=== PATIENT | male | born 1950 | race African-American/Black ===

== ENCOUNTER 2016-10-13 17:47 | Inpatient (IN) | payer BC, MEDICARE ==
--- NOTE | ~2016-10-13 | CN ---
Consultation Report [facility] [address] [place]. [address] NAME: APOLLO ELIZABETH : 48 STATUS : ADM IN PAT#: [id number] AGE: 66 ADM/REG DATE : 10/13/16 MR#: [id number] REPORT SERV DATE: 10/18/16 DICTATED BY: LLUVIA RUBIO DATE: 10/18/16 REPORT STATUS : Draft TRANSCRIBED BY: MODL DATE: 10/18/16 CONSULTATION DATE OF CONSULTATION: 10/18/2016 REFERRING PROVIDER: Valentin Lucero PA-C. REASON FOR CONSULTATION: Right exudative effusion, consideration for thoracoscopy and possible pleurodesis. CHIEF COMPLAINT: "I have been getting short of breath and have not felt well." HISTORY OF PRESENT ILLNESS: This is a 66-year-old gentleman, with prior history of coronary artery bypass grafting by Dr. Rubio in 2009. The patient's history is significant for AICD implantation post coronary artery bypass grafting, with severe tricuspid insufficiency secondary to lead placement, enlargement of right ventricle and right atrium and elevated right atrial pressure. The patient reports worsening shortness of breath over the past several weeks but denies any history of fevers, chills, or sweats. He came to the hospital and was admitted on the 10/13/2016. He had a chest x-ray showing very large right pleural effusion and had subsequent CT scan on 10/13/2016, showing right pleural effusion with atelectasis right lower lobe lung. Yesterday the patient underwent thoracentesis of 1600 mL of slightly cloudy yellow pleural fluid and met 1 criteria for exudative pleural effusion. We were asked to see for possible surgical therapy including right thoracoscopy and possible pleurodesis. This was discussed with the patient today. PRIOR MEDICAL HISTORY: 1. End-stage renal disease, on dialysis. 2. Coronary artery disease, status post coronary artery bypass grafting in 2009. 3. Type 2 insulin-dependent diabetes mellitus. 4. Hypertension. 5. Mitral insufficiency. 6. Sick sinus syndrome and heart failure, status post implantation of AICD. 7. History of ventricular tachycardia. 8. Hyperlipidemia. 9. Glaucoma with laser surgery. 10.Cataracts with intraocular lens implants. 11.Peripheral arterial disease, status post bilateral below-knee amputations. 12.Atrial fibrillation. PRIOR SURGICAL HISTORY: Significant for previous coronary artery bypass grafting, prior PCI with stent in 2001, prior left knee scope, right and left below-knee amputations, previous colonoscopy, and previous creation of left upper extremity arteriovenous fistula for dialysis. Consultation Report [facility] [id number] [place]. [address] NAME: APOLLO ELIZABETH : 48 STATUS : ADM IN PAT#: [id number] AGE: 66 ADM/REG DATE : 10/13/16 MR#: [id number] REPORT SERV DATE: 10/18/16 DICTATED BY: LLUVIA RUBIO DATE: 10/18/16 REPORT STATUS : Draft TRANSCRIBED BY: AIDE DATE: 10/18/16 ALLERGIES: INCLUDE ADHESIVE TAPE WHICH CAUSES BLISTERING OF THE SKIN AND VANCOMYCIN WHICH LEADS TO DIARRHEA. MEDICATIONS AT HOME: Include albuterol inhaler 2 puffs inhaled b.i.d., aspirin 325 mg p.o. daily, atorvastatin 40 mg p.o. at bedtime, Nephro-Shaneka 1 tab q.a.m., PhosLo 667 two tablets p.o. with meals, Tums 500 mg 2 daily, Coreg 6.25 mg p.o. b.i.d., Sensipar tabs 30 mg p.o. on Sunday, Sunday, Sunday; Clopidogrel 75 mg p.o. q.a.m., last dose was on 10/14/2016, insulin, nitroglycerin as needed, Restoril as needed for sleep, probiotics 1 cap p.o. q.a.m., and Mucinex 1 tab p.o. q.12 hours p.r.n. chest congestion. FAMILY HISTORY: Noncontributory. SOCIAL HISTORY: He is retired from working in [place] locally. He has a remote history of drinking about 4 beers per day for maybe 30 years. He denies the use of illicit drugs or tobacco. REVIEW OF SYSTEMS: In general, negative for any recent weight change, fevers, chills, or night sweats. He has had recent diarrhea since taking antibiotic therapy. Otherwise, negative or as above. PHYSICAL EXAMINATION: GENERAL: He is a pleasant black male, sitting upright in bed. He is in no acute distress. VITAL SIGNS: His temperature is 97.5, pulse is 75 and irregular, respirations 17, regular and unlabored, and saturation is 100% on 4 L nasal cannula. HEENT: Head is shaven, pupils are equal, round, and reactive to light and accommodation, sclerae clear, conjunctivae pink. Oral and buccal mucosa pink and moist. He is missing many teeth. No abscesses. Mallampati class 1 airway. NECK: Supple. No restricted range of motion. He has prominent neck vein distention, more prominent on the right than the left. CHEST: Diminished breath sounds in the right lung base and dullness to percussion over the right lower chest posteriorly. He has no use of accessory muscles. No chest deformity. CV: Regular rate and rhythm without murmur or rub. He has palpable pacemaker over the right upper chest. ABDOMEN: Soft, obese, nontender, liver is nonpalpable. /RECTAL: Declined. He is wearing diapers. MUSCULOSKELETAL: He has bilateral lower extremity below-knee amputations. There are dressings over both lower extremities. NEUROLOGIC: He is alert, oriented, appropriately responsive and a good historian. No focal neurologic deficits. DATA: His recent echo dated 10/03/2016, shows borderline left ventricular hypertrophy with ejection fraction 45% to 50%, severe right atrial dilation, severe right ventricular dilation, and severe tricuspid regurgitation with elevated right atrial pressure of 20 mmHg. There is a small pericardial effusion. His recent CT scan as described above. Chest x-ray taken today shows partial reaccumulation of right pleural effusion, and atelectasis in the Consultation Report [address] [place]. [address] NAME: APOLLO ELIZABETH : 48 STATUS : ADM IN [facility]#: [id number] AGE: 66 ADM/REG DATE : 10/13/16 MR#: [id number] REPORT SERV DATE: 10/18/16 DICTATED BY: LLUVIA RUBIO DATE: 10/18/16 REPORT STATUS : Draft TRANSCRIBED BY: MODL DATE: 10/18/16 left lung base. His pleural fluid, LDH was 157, his glucose 196, pleural fluid protein was 4.9, and systemic. Serum protein was 7.5. His recent procalcitonin was elevated at 4.78. A1c was 6.2. Electrolytes shows expected elevation of the BUN and creatinine of 45 and 6.94, and hyperglycemia with glucose 262. His CBC shows WBCs 5.9, hemoglobin 12.5 g, hematocrit 39.4%, and platelets 170,000. IMPRESSION: Recurrent right exudative pleural effusion, status post thoracentesis yesterday. We are asked to see for possible right thoracoscopy and pleurodesis. This was discussed with the patient including the usual perioperative course, indications, benefits, and risks. These include things like bleeding, need for blood or blood product transfusion and their attendant risks, infection, pneumonia, air leak from the lung, pain, need for chest tubes postoperatively, heart attack, and even . The patient indicates his understanding and we will review with Dr. Rubio and make further disposition. We appreciate the opportunity to participate in his care. DICTATED BY: Trish Shah/RAMIROL Lluvia Rubio M.D. / [id number] CC: Keisha Hill M.D.
--- NOTE | ~2016-10-13 | OP ---
Record Of Operation [facility] [address] [place]. [address] NAME: APOLLO ELIZABETH : 48 STATUS : ADM IN PAT#: [id number] AGE: 66 ADM/REG DATE : 10/13/16 MR#: [id number] REPORT SERV DATE: 10/17/16 DICTATED BY: VALENTIN VELIZ DATE: 10/17/16 REPORT STATUS : Draft TRANSCRIBED BY: AIDE DATE: 10/17/16 DATE OF PROCEDURE: 10/17/2016 TIME: 9:30. PROCEDURE: Ultrasound-guided right-sided thoracentesis. INDICATION: Large right-sided pleural effusion. PROCEDURE MANAGER NEW PRODUCT: David Veliz PA-C. CONSENT: Consent was obtained from the patient prior to the procedure. Diagnostic and therapeutic indications for thoracentesis were discussed as well as risks including life- threatening bleeding, pneumothorax, and even the possible necessity of chest tube placement. Benefits and alternatives were explained at length. Prior to the procedure, imaging studies were reviewed with Dr. Arthur who agreed with the indication to proceed with thoracentesis. Dr. Arthur was present for the procedure. PROCEDURE SUMMARY: A time out was performed verifying correct patient, procedure, site, and positioning. The patient's right chest was prepped and draped in a sterile manner using chlorhexidine scrub after the appropriate level was percussed and confirmed by ultrasound. U/S images were obtained and placed within the chart. 2% lidocaine with epinephrine was then used to anesthetize the region. A finder needle was then used to aspirate yellow cloudy pleural fluid. A 10-blade scalpel was then used to make a small incision. The thoracentesis catheter was then threaded into the pleural space without difficulty. The patient had 1600 mL of yellow cloudy fluid removed. Some residual fluid was noted on ultrasound toward the end of the procedure. However, it became difficult to aspirate and at this time, the procedure was ended. No immediate complications were noted during the procedure. A post-procedure chest x-ray is pending at the time of this dictation. The fluid will be sent for several studies. ESTIMATED BLOOD LOSS: Minimal. GBS/MODL Valentin Veliz PA-C / [id number] CC: Keisha Hill M.D.
--- NOTE | ~2016-10-13 | DS ---
Discharge Summary [facility] [address] [place]. [address] NAME: APOLLO ELIAZBETH : 48 STATUS : ADM IN [facility]#: [id number] AGE: 66 ADM/REG DATE : 10/13/16 MR#: [id number] REPORT SERV DATE: 10/28/16 DICTATED BY: DELONTE EMMANUEL DATE: 10/27/16 REPORT STATUS : Draft TRANSCRIBED BY: MODL DATE: 10/27/16 ADMISSION DATE: 10/13/2016 DISCHARGE DATE: This is a discharge dialysis patient. CONDITION AT DISCHARGE: Stable. MEDICATIONS ON DISCHARGE: Are as follows: Vitamin C 1000 mg p.o. b.i.d., Lipitor 40 mg p.o. q.h.s., Dulcolax 10 mg p.r.n., Coreg 6.25 mg p.o. b.i.d., Sensipar 30 mg Sunday, Sunday, Plavix 75 mg p.o. daily, NovoLog insulin via sliding scale, Lantus insulin 35 units subcu q.h.s., B complex tablet 1 p.o. daily, ProAmatine 10 mg p.o. t.i.d., ProAir HFA p.r.n. shortness of breath, PhosLo 2 tabs p.o. t.i.d. with meals, probiotic 1 cap p.o. daily, ASA 325 mg Sunday, , Sunday, Restoril 30 mg p.o. q.h.s. p.r.n., Tums 1000 mg p.o. daily p.r.n., and nitroglycerin sublingual p.r.n. CONSULTATIONS DURING HOSPITAL STAY: Pulmonary Services, Samuel Buckley MD; Jani Bazzi M.D. of Infectious Disease; Carmine Rubio M.D. of CV Surgery. DISCHARGE DIAGNOSES: Are as follows: 1. End-stage renal disease. 2. Possible pneumonia. 3. Recurrent right pleural effusion status post thoracentesis. 4. Pleurodesis. 5. Diabetes mellitus. 6. Peripheral vascular disease. 7. Bilateral mfsfo-fhu-ughb amputation. 8. Chronic hypotension. 9. Insulin-dependent diabetes mellitus. 10.Remote myocardial infarction. 11.Previous coronary artery bypass graft. 12.Atrial fibrillation. 13.Pacemaker. 14.History of sepsis. 15.Anemia. HOSPITAL COURSE: This is an end-stage renal disease patient, who dialyzes on a Sunday, Sunday, Sunday schedule. Admitted on 10/13/2016. He had stated that he "did not feel well" and presented post hemodialysis to [facility] for evaluation. He was admitted in favor of further workup and supportive care, and diagnosed with possible pneumonia. He was provided supportive care with hemodialysis and antibiotics. Pulmonary consultation was undertaken after a large pleural effusion was noted on CT imaging. He was seen in consultation by Dr. Samuel Buckley, and thoracentesis was planned. Thoracentesis was undertaken on 10/17/2016, of the right side by Valentin Lucero of the Pulmonary Service. A 1.6 L of yellow cloudy fluid was removed with remaining fluid difficult to aspirate. Subsequently consultation was undertaken with Dr. Carmine Rubio, who saw him on 10/18/2016, Discharge Summary [address] [address] NAME: APOLLO ELIZABETH : 48 STATUS : ADM IN [facility]#: [id number] AGE: 66 ADM/REG DATE : 10/13/16 MR#: [id number] REPORT SERV DATE: 10/28/16 DICTATED BY: DELONTE EMMANUEL DATE: 10/27/16 REPORT STATUS : Draft TRANSCRIBED BY: AIDE DATE: 10/27/16 at the request of Jazmine, for consideration of thoracoscopy and pleurodesis. This procedure was undertaken on 10/21/2016, with chest tube being placed. The patient then continued in ICU setting and was transitioned to the floor on 10/25/2016. His chest tube has been subsequently removed. He continues to have some modest amount of drainage in that site. He appears to be stable today. CV Surgery has continued to follow him. Pulmonary Services have signed off at this point. The patient has declined rehabilitation of an inpatient nature and wishes to go home with home health care. Today, he is being dialyzed as usual 3 hours via his upper extremity fistula and will be dismissed if he is cleared by CV Surgery, who will re-evaluate him this morning. The patient is stable and has no complaints this morning. He will resume his usual outpatient hemodialysis schedule, medications as listed above, and return for followup with Pulmonary Services or CV Surgery if deemed necessary by their service. DICTATED BY: Frederick Meehan NP JR/AIDE Delonte Emmanuel M.D. / [id number] CC: Keisha Hill M.D.
--- NOTE | ~2016-10-13 | CN ---
Consultation Report [address] [place]. [address] NAME: APOLLO THAO : 48 STATUS : ADM IN PAT#: [id number] AGE: 66 ADM/REG DATE : 10/13/16 MR#: [id number] REPORT SERV DATE: 10/17/16 DICTATED BY: RASHEED HUNT DATE: 10/16/16 REPORT STATUS : Draft TRANSCRIBED BY: MODL DATE: 10/16/16 CONSULTATION DATE OF CONSULTATION: 10/16/2016 REASON FOR THE VISIT: Arrhythmia. HISTORY OF PRESENT ILLNESS: Mr. Thao is a 66-year-old man known to me from prior care with a defibrillator. He also has history of atrial fibrillation and ventricular tachycardia. He has presented with shortness of breath. He needs a thoracentesis. While here, he has had short runs of nonsustained ventricular tachycardia. Device interrogation has demonstrated atrial fibrillation as well. He denies any chest pain or palpitations. No syncope. PAST MEDICAL HISTORY: 1. End-stage renal disease, on hemodialysis. 2. History of congestive heart failure. 3. Atrial fibrillation. 4. History of ventricular tachycardia. 5. Bilateral cckwf-ppq-lwaa amputations. 6. Peripheral vascular disease. 7. Diabetes. 8. Hypertension. 9. Coronary artery disease with history of myocardial infarction. 10.Anemia. SOCIAL HISTORY: He is . is very supportive. He does not smoke. FAMILY HISTORY: Noncontributory. HOME MEDICATIONS: Please see the list in the chart since it is extensive. Relevant cardiac medications are: 1. Aspirin 325 mg on non dialysis days. 2. Carvedilol 6.25 mg b.i.d. 3. Plavix 75 mg daily. ALLERGIES: HE IS ALLERGIC TO VANCOMYCIN. REVIEW OF SYSTEMS: A 10 system review was asked and is negative except for noted above in the history of present illness and for the following. He has chronic fatigue. No significant palpitations. No recent cold or flu symptoms. No cough. PHYSICAL EXAMINATION: VITAL SIGNS: Temperature 97.8, heart rate 80, blood pressure 124/72. Consultation Report [address] [place]. [address] NAME: APOLLO THAO : 48 STATUS : ADM IN PAT#: [id number] AGE: 66 ADM/REG DATE : 10/13/16 MR#: [id number] REPORT SERV DATE: 10/17/16 DICTATED BY: RASHEED HUNT DATE: 10/16/16 REPORT STATUS : Draft TRANSCRIBED BY: AIDE DATE: 10/16/16 GENERAL: Mr. Thao is a well-developed chronically ill-appearing man, in no acute distress. He is alert and oriented to person and hospital. HEENT: Negative. He does not appear dehydrated. There is some JVD in his neck. LUNGS: Have rhonchi bilaterally. Some upper airway noises. No crackles. HEART: Tones are distant. They sound regular. ABDOMEN: Negative. He has good bowel sounds. EXTREMITIES: Significant for bilateral gohfr-tnx-uugd amputations. He does not appear edematous otherwise. SKIN: Does not show any rash. There is some bruising. EXTREMITIES: He has a fistula in his left upper extremity. This is for dialysis. NEUROLOGIC: He moves all four extremities equally. He has normal speech. LAB DATA: White blood cell count is 6, hematocrit 41, platelet count 175. Sodium 138, potassium 3.8, BUN is 25, creatinine is 4.7. Troponin 0.23. Electrocardiogram, currently I do not see an electrocardiogram in the chart. There are multiple telemetry strips that show atrial pacing, ventricular pacing, short episodes of nonsustained ventricular tachycardia. There is one episode that lasted about a minute long of a wide-complex rhythm that appears to be ventricular pacing, not ventricular tachycardia. Device interrogation, this was performed by the [employer] b[employer] outside sales representative. It demonstrates atrial fibrillation, episodes of ventricular tachycardia that have not been long enough to treat. Chamber data is otherwise normal. No permanent changes were made. IMPRESSION: 1. Chronic atrial fibrillation. 2. Ventricular tachycardia, nonsustained. 3. Congestive heart failure. 4. Coronary artery disease. 5. Chronically elevated troponin. PLAN: Mr. Thao should remain on his beta-luci. He is maintained on aspirin and Plavix as an outpatient for his atrial fibrillation. He is not taking stronger anticoagulation secondary to the bleeding risk in his situation. The aspirin and Plavix can be stopped as needed during the hospitalization for any procedures that need to be done. I will not increase his beta-luci secondary to some low blood pressures. Therefore, there will be no change on my part right now. We will observe him. Thank you for the consultation. MICHELLE/MODL Rasheed Garcia Consultation Report [facility] [id number] [place]. [address] NAME: APOLLO THAO : 48 STATUS : ADM IN PAT#: [id number] AGE: 66 ADM/REG DATE : 10/13/16 MR#: [id number] REPORT SERV DATE: 10/17/16 DICTATED BY: RASHEED HUNT DATE: 10/16/16 REPORT STATUS : Draft TRANSCRIBED BY: AIDE DATE: 10/16/16 Keisha Hunt / [id number] CC: Keisha Hill M.D.
--- NOTE | ~2016-10-13 | HP ---
History And Physical [facility] [address] [place] [place]. [address] NAME: APOLLO ELIZABETH : 48 STATUS : ADM IN PAT#: [id number] AGE: 66 ADM/REG DATE : 10/13/16 MR#: [id number] REPORT SERV DATE: 10/14/16 DICTATED BY: KETAN UMANZOR DATE: 10/14/16 REPORT STATUS : Draft TRANSCRIBED BY: MODL DATE: 10/14/16 DATE OF ADMISSION: 10/13/2016 REASON FOR ADMISSION: End-stage renal disease with questionable pneumonia. HISTORY OF PRESENT ILLNESS: This is a very pleasant 66-year-old, medically unfortunate male patient, who returns to [facility] complaining of overt fatigue and dyspnea over the last 72 hours. He reported to hemodialysis per his usual schedule yesterday and was complaining of shortness of breath and dyspnea at dialysis treatment, stating "that he did not feel right." He was dialyzed for his usual time and was noted to be 1.9 kilos over dry weight, was challenged with 3.5 kilos removed. As the patient continued to feel dyspneic and fatigued, he was sent to [facility] for evaluation and subsequently admitted for likely pneumonia. The patient has had a previous echocardiogram in 07/2016, showing an ejection fraction at 45% to 50% with noted large pleural effusion on that evaluation. Chest x-ray on evaluation here has shown consolidated right infiltrate/or effusion involving two-thirds of the right lung. The patient is awake and alert this morning. He is noticeably short of breath, not overtly tachypneic. His family is at bedside during evaluation. Denies current chest pain. He is on supplemental oxygen at 4 L, which is an increase from his usual baseline. PAST MEDICAL HISTORY: Positive for end-stage renal disease, Sunday, Sunday, Sunday, at [facility] via a left upper extremity fistula. History also positive for diabetes mellitus, osteomyelitis of the left foot, status post left BKA, 06/05/2016, by Dr. Sanchez, remote right [id number] amputation, peripheral vascular disease, diabetes mellitus type 2, hypertension, remote myocardial infarction, coronary artery disease, status post CABG, atrial fibrillation, status post pacemaker, history of sepsis, and anemia. REVIEW OF SYSTEMS: Completed. Please see HPI for pertinent details. SOCIAL HISTORY: No ETOH. No illicit drugs. No tobacco. Lives here locally with excellent family support in regard to his medical care. HOME MEDICATIONS AND ALLERGIES: Have been addressed and are as follows: He lists allergies to adhesive tape and allergies to vancomycin. ACTIVE MEDICATIONS: Include ProAir HFA two puffs inhaled p.r.n. shortness of breath, ASA 325 mg p.o. non-dialysis days, Lipitor 40 mg p.o. at bedtime, Nephro-Shaneka 1 tab daily, PhosLo 667 mg p.o. daily, Tums 500 mg two tabs daily p.r.n. for GERD, Coreg 6.25 mg p.o. b.i.d., Sensipar 30 mg Sunday, Sunday, Sunday, Plavix 75 mg p.o. daily, NovoLog sliding scale, Lantus 35 units subcu at bedtime, NitroQuick 0.4 p.r.n., Restoril 30 mg p.o. at bedtime p.r.n., probiotic 1 cap daily, and Mucinex 1 tab q.12 hours p.r.n. congestion. PHYSICAL EXAMINATION: VITAL SIGNS: Blood pressure 121/70, temperature 97.5, heart rate 79 beats per minute, respiratory rate 22, he is 97% on 4 L. History And Physical [address] [address] NAME: APOLLO ELIZABETH : 48 STATUS : ADM IN [facility]#: [id number] AGE: 66 ADM/REG DATE : 10/13/16 MR#: [id number] REPORT SERV DATE: 10/14/16 DICTATED BY: KETAN UMANZOR DATE: 10/14/16 REPORT STATUS : Draft TRANSCRIBED BY: AIDE DATE: 10/14/16 GENERAL: He is awake, alert, and oriented. He is noticeably short of breath, but not overtly tachypneic. HEENT: Normocephalic and atraumatic. Normal ocular movements. No scleral icterus. No conjunctival pallor is appreciated. NECK: Without thyromegaly. No JVD or mass. CHEST: Shows positive S1 and S2. No rubs or gallops. LUNGS: Diminished throughout with normal expansion and effort bilaterally. Nonlabored shortness of breath, but not overtly tachypneic, with no rhonchi or wheezes appreciated to auscultation. GI: Shows positive bowel sounds in all four quadrants. No appreciable mass or tenderness. : Deferred. EXTREMITIES: Show positive pulses in bilateral upper extremities and bilateral below-the- knee amputations. NEUROLOGIC: Appears to be grossly intact. Nonfocal. SKIN: Warm, dry, and intact to the visualized surfaces. No rash, lesions, or ecchymosis. PSYCH: He appears to be of appropriate mood and affect. LABORATORY DATA: Pertinent laboratories and imaging to this evaluation are as follows: Most recent portable chest x-ray identifies persistent right lung consolidation or infiltrate with left basilar atelectasis with noted previous discussion of the effusion on chest x-ray on the same day. Sodium 136, potassium 3.9, chloride 100, CO2 of 26, BUN 24, creatinine 4.40 with a reflected GFR of 15 mL/minute, glucose of 137. Calcium 8.4, magnesium 2.1, phosphorus at 2.4, albumin 3.0. Troponin 0.19. CBC: White blood cell count of 5.4, RBC 4.44, hemoglobin 12.2, hematocrit 39.3, and platelets at 177. IMPRESSION AND PLAN: This is a very pleasant, end-stage renal disease, 66-year-old male, who dialyzes Sunday, Sunday, Sunday via left upper extremity fistula, now presenting to [facility] with tachypnea, shortness of breath, and fatigue with question of pneumonia. He does not have an elevated white count and has been afebrile. He, however, was challenged yesterday at dialysis with extra removal as reflected in the HPI. He did have evidence last evening of short runs of ventricular tachycardia which were nonsustained with relatively a normal electrolyte pattern which was called to the on-call service. Place him in dialysis today and attempt to further UF as he may need further dry weight challenge and ask Cardiology to see and evaluate for ventricular tachycardia runs with previous cardiac history as listed above. Considering previous effusions noted on imaging, we will check CT of the chest without contrast to evaluate for possible need for thoracentesis versus further evaluation for question of loculation of fluid if present. Antibiotics were in place and we will continue those. Consider additional antibiotic coverage if warranted and consider further consultation with Pulmonary if CT should show evidence of needed thoracentesis. Strict I's and O's, daily weights, sliding scale insulin, home medications as listed above. Renal ADA diet with further modification of treatment plan to be made based on clinical presentation of the patient, laboratory results, further consultation with renal attending. We appreciate Cardiology's assistance in implementing care plan and directives for this patient. History And Physical [facility] [id number] [place]. [address] NAME: APOLLO ELIZABETH : [birth year] STATUS : ADM IN PAT#: [id number] AGE: 66 ADM/REG DATE : 10/13/16 MR#: [id number] REPORT SERV DATE: 10/14/16 DICTATED BY: KETAN UMANZOR DATE: 10/14/16 REPORT STATUS : Draft TRANSCRIBED BY: AIDE DATE: 10/14/16 DICTATED BY: Frederick Meehan NP JR/AIDE Ketan Umanzor M.D. / [id number] CC: Keisha Hill M.D.
--- NOTE | ~2016-10-13 | CN ---
Consultation Report [facility] [address] [place]. [address] NAME: APOLLO HTAO : 48 STATUS : ADM IN [facility]#: [id number] AGE: 66 ADM/REG DATE : 10/13/16 MR#: [id number] REPORT SERV DATE: 10/16/16 DICTATED BY: SAMUEL BUCKLEY DATE: 10/15/16 REPORT STATUS : Draft TRANSCRIBED BY: MODL DATE: 10/15/16 PULMONARY CONSULT NOTE DATE OF CONSULTATION: 10/15/2016 REASON FOR CONSULTATION: Antibiotic recommendations along with pleural effusion. CHIEF COMPLAINT: Shortness of breath. HISTORY OF PRESENT ILLNESS: Mr. Thao is a very nice 66-year-old gentleman with a past medical history of underlying cardiovascular disease and end-stage renal disease, who began having shortness of breath four days ago, , who is at the bedside notes that the shortness of breath actually probably started sometime before that, but this has been progressive. The patient now has conversational dyspnea. He is having intermittent sputum production, which is yellow, but this sounds to be chronic. He does have also a dry cough, which was also new. The patient is having orthopnea, which is new, but is not having any pain. The patient does complain of some hot flashes and abdominal bloating. His appetite has decreased. PAST MEDICAL HISTORY: End-stage renal disease, coronary artery disease, bilateral below-the- knee amputation, peripheral vascular disease, diabetes, CABG, AICD, atrial fibrillation, history of sepsis and anemia. HOME MEDICATIONS: The home medication list reviewed, pulmonary medications include albuterol. ALLERGIES: ADHESIVE TAPE AND VANCOMYCIN. SOCIAL HISTORY: The patient is currently , no tobacco or illicit drug use, no alcohol. FAMILY HISTORY: Other family members with underlying cardiovascular disease, diabetes, and cirrhosis. REVIEW OF SYSTEMS: All pertinent review systems reviewed and is otherwise negative. PHYSICAL EXAMINATION: VITAL SIGNS: The patient is currently afebrile, heart rate 70s, respiratory rate 16 to 22, oxygen saturation currently on 4 L with a saturation of 95% to 100%, respiratory rate in the 30s, blood pressure currently in the 120s and 130s. GENERAL: The patient has conversational dyspnea, shallow breathing, but is not in respiratory distress. PULMONARY: Decreased breath sounds on the right, otherwise left lung is clear. Consultation Report [facility] [address] [place]. [address] NAME: APOLLO THAO : 48 STATUS : ADM IN [facility]#: [id number] AGE: 66 ADM/REG DATE : 10/13/16 MR#: [id number] REPORT SERV DATE: 10/16/16 DICTATED BY: SAMUEL BUCKLEY DATE: 10/15/16 REPORT STATUS : Draft TRANSCRIBED BY: MODCece DATE: 10/15/16 CARDIAC: Regular rate, no murmurs. ABDOMEN: Soft, nontender, nondistended. No guarding or rebound. Soft bowel sounds. EXTREMITIES: The patient has bilateral [id number] amputations. NEUROLOGIC: The patient is able to move all extremities with no difficulty. LABORATORY EXAMINATION: The patient has no leukocytosis, mild anemia, procalcitonin is 4.36, evidence of chronic kidney disease. BNP 313. IMAGING: CT scan of the chest shows a large right pleural effusion with compressive atelectasis of the right lung with underlying left lung atelectasis, but otherwise no significant mediastinal adenopathy. ASSESSMENT AND PLAN: Mr. Thao is a 66-year-old gentleman with end-stage renal disease, diagnosis in a patient who has significant cardiovascular and peripheral vascular disease, who has known osteomyelitis and history of underlying sepsis. The patient clearly comes in with a shortness of breath, hypoxia secondary to a right pleural effusion, concern of underlying sepsis is of note. 1. Sepsis: The patient is not in septic shock. He has a history of multiple infections including methicillin-resistant Staphylococcus aureus, Pseudomonas, Citrobacter, Proteus. At this moment in time, his blood cultures were drawn two days ago, I recommend that we discontinue Levaquin, check procalcitonin in the morning. I originally wrote for vancomycin; however, will discontinue this secondary to the fact that the patient has had a known history of vancomycin allergy. If this patient does have continued sepsis or findings of methicillin-resistant Staphylococcus aureus, the patient can potentially be treated with clindamycin or Zyvox. 2. Right pleural effusion: The patient clearly has a need to get this tapped, the patient is on Plavix. The patient took Plavix this morning, at this moment in time, we will hold off and the patient will most likely need a thoracentesis to rule out empyema and furthermore a probable paracentesis to rule out spontaneous bacterial peritonitis. The patient will be on antibiotics however. 3. Hypoxia: Most likely secondary to the atelectasis. Thank you very much for this consultation and allowing us to participate in your patient's care, please call us with any further questions or concerns. JAKOBQ/AIDE Samuel Buckley MD / [id number] CC: Carmine Paige M.D. Consultation Report [address] [address] NAME: APOLLO THAO : 48 STATUS : ADM IN [facility]#: [id number] AGE: 66 ADM/REG DATE : 10/13/16 MR#: [id number] REPORT SERV DATE: 10/16/16 DICTATED BY: SAMUEL BUCKLEY DATE: 10/15/16 REPORT STATUS : Draft TRANSCRIBED BY: AIDE DATE: 10/15/16 Carmine Mendoza M.D.
--- NOTE | ~2016-10-13 | OP ---
Record Of Operation [facility] [address] [place]. [address] NAME: APOLLO ELIZABETH : 48 STATUS : ADM IN PAT#: [id number] AGE: 66 ADM/REG DATE : 10/13/16 MR#: [id number] REPORT SERV DATE: 10/21/16 DICTATED BY: LLUVIA RUBIO DATE: 10/20/16 REPORT STATUS : Draft TRANSCRIBED BY: MODL DATE: 10/20/16 DATE OF PROCEDURE: 10/20/2016 PREOPERATIVE DIAGNOSES: 1. Recurrent right pleural effusion. 2. End-stage renal disease. 3. Coronary artery disease, status post previous coronary bypass grafting. 4. Insulin-dependent diabetes mellitus type 2. 5. Hypertension. POSTOPERATIVE DIAGNOSES: 1. Recurrent right pleural effusion. 2. End-stage renal disease. 3. Coronary artery disease, status post previous coronary bypass grafting. 4. Insulin-dependent diabetes mellitus type 2. 5. Hypertension. PROCEDURE PERFORMED: Right video-assisted thoracic surgery procedure with drainage of effusion and pleurodesis. SURGEON: Lluvia Rubio M.D. CHAIR AND COUCH MAKER: Marlena Munoz. ANESTHESIA: General. INDICATIONS: This is a 66-year-old gentleman with a long history of coronary artery disease, underwent bypass by ak in 2009. He also has a long history of diabetes mellitus along with end-stage renal disease. He has had bilateral lower extremity amputation. He has hypertension, hypercholesterolemia, and has had worsening shortness of breath. He was admitted to the hospital with these symptoms and a chest x-ray demonstrated a large right pleural effusion. He underwent thoracentesis of approximately 1600 mL of yellow fluid and this did not dissipate the effusion completely and we were asked to perform a thoracoscopic procedure to drain the effusion and diagnose possible causes along with preventative treatment using pleurodesis. We discussed the operation with the patient and his , and they wished to proceed. FINDINGS AT OPERATION: 1. 2450 mL of serous fluid was obtained from the chest, some of this was sent for cultures and some sent for cytology. 2. There was no peel on the surface of the lung. 3. There was no obvious pulmonary pathology to explain recurrent effusion. 4. We used Betadine for sclerosing agent. PATHOLOGIC SPECIMEN: Include cytology and cultures of fluid. Record Of Operation [facility] [address] [place]. [address] NAME: APOLLO ELIZABETH : 48 STATUS : ADM IN PAT#: [id number] AGE: 66 ADM/REG DATE : 10/13/16 MR#: [id number] REPORT SERV DATE: 10/21/16 DICTATED BY: LLUVIA RUBIO DATE: 10/20/16 REPORT STATUS : Draft TRANSCRIBED BY: MODCece DATE: 10/20/16 DESCRIPTION OF PROCEDURE: The patient was brought to the operating suite where general anesthesia was induced and airway secured with a dual-lumen endotracheal tube. Lines were secured by Anesthesia. The patient was rolled in a left lateral decubitus position, right chest prepped with Hibiclens and ChloraPrep and draped with Ioban sterile sheets. The right lung was deflated by Anesthesia. A single 3 to 4 cm VATS incision was made along the posterior axillary line and four intercostal spaces above the costal margin. We aspirated here and serous effusion was obtained. We can direct our incision through the chest wall musculature and down to the level of the pleura where we entered the chest bluntly. A protractor soft tissue retractor was placed. A second thoracoscopic port site was made along the anterior axillary line and 1 or 2 intercostal spaces below this site. Through this 1-2 cm incision, we entered the chest bluntly with a tonsil clamp under thoracoscopic visualization. We then aspirated all the fluid in the right chest. A total of 2450 mL was obtained. Some of this was sent for cultures and some for cytology. We then inspected the right chest completely. 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 In addition, there was no peel on the surface of the lung and it inflated completely to obliterate the pleural cavity on the right. Then, intercostal nerve block and field block performed using a TAP solution. Then, a right angle chest tube was placed at the base of the right chest through the most inferior and anterior thoracoscopic port site. Then, using the Betadine sclerosing agent, this was instilled into the chest and a chest tube was clamped. The lung was then inflated completely and allowed to remain inflated. Then, hemostasis was obtained. A protractor soft tissue retractor was removed and this largest VATS incision was closed in layers of absorbable suture and skin closed in subcuticular fashion. The patient tolerated the procedure well. There were no complications. DISPOSITION: The patient was extubated and taken to recovery room in stable condition. The chest tube was left in a position so that it would not drain for one hour postoperatively. EDGAR/AIDE Lluvia Rubio M.D. / [id number] Record Of Operation [address] [address] NAME: APOLLO ELIZABETH : 48 STATUS : ADM IN [facility]#: [id number] AGE: 66 ADM/REG DATE : 10/13/16 MR#: [id number] REPORT SERV DATE: 10/21/16 DICTATED BY: LLUVIA RUBIO DATE: 10/20/16 REPORT STATUS : Draft TRANSCRIBED BY: AIDE DATE: 10/20/16 CC: Lluvia Paige M.D.
--- NOTE | ~2016-10-13 | CN ---
Consultation Report [facility] [address] [place]. [address] NAME: APOLLO ELIZABETH : 48 STATUS : ADM IN [facility]#: [id number] AGE: 66 ADM/REG DATE : 10/13/16 MR#: [id number] REPORT SERV DATE: 10/18/16 DICTATED BY: MARILU BAZZI DATE: 10/18/16 REPORT STATUS : Draft TRANSCRIBED BY: MODL DATE: 10/18/16 INFECTIOUS DISEASE CONSULTATION DATE OF CONSULTATION: 10/18/2016 REASON FOR CONSULTATION: Possible pneumonia and possible C. diff. HISTORY OF PRESENT ILLNESS: This is a 66-year-old man well known to me from previous inpatient consultations who has a past medical history notable for end-stage renal disease on dialysis for over 10 years along with diabetes, peripheral vascular disease, and coronary artery disease. He is status post bilateral below-knee amputations. The patient was admitted to the hospital on 10/13 with worsening shortness of breath over the previous few days along with some fatigue. He denies having any significant fevers, chills or sweats. He did have mild episodic nonproductive cough but that is fairly chronic for him. Initial chest x-ray showed a very large right pleural effusion, new compared to July, leading to a CT scan on 10/13 of the chest which confirmed this moderately large right pleural effusion with complete atelectasis of the right lower lobe. The patient was on Plavix which was held and he underwent thoracentesis yesterday with removal of 1600 mL of somewhat cloudy yellow fluid with results as outlined below. He feels much better since the thoracentesis. On admission, the patient had blood cultures done and was started on antibiotics initially with a dose of Levaquin and also Zosyn which he remains on today. The patient has had no fevers in the hospital. His white blood cell count has remained normal. He did develop some episodic loose stools but not severe and did not have diarrhea overnight or this morning. PAST MEDICAL HISTORY: As outlined above and on previous consultations and is most notable in addition for a history of a pacemaker, coronary artery bypass surgery, history of atrial fibrillation. ALLERGIES: VANCOMYCIN. PRESENT MEDICATIONS: In addition to Zosyn include Levemir, Florastor, Nephrocaps, Sensipar, Coreg, PhosLo, Lipitor. SOCIAL HISTORY: He lives with his . Nonsmoker. Nondrinker. FAMILY HISTORY: Noncontributory. REVIEW OF SYSTEMS: Otherwise negative. PHYSICAL EXAMINATION: VITAL SIGNS: The patient weighs 79 kilos. He is afebrile. Blood pressure 114/60, pulse 77, respiratory rate 14. He has 100% oxygen saturation on 3 L nasal cannula. HEAD AND NECK: Clear oral cavity without thrush. Consultation Report [facility] [id number] [place]. [address] NAME: APOLLO ELIZABETH : 48 STATUS : ADM IN [facility]#: [id number] AGE: 66 ADM/REG DATE : 10/13/16 MR#: [id number] REPORT SERV DATE: 10/18/16 DICTATED BY: MARILU BAZZI DATE: 10/18/16 REPORT STATUS : Draft TRANSCRIBED BY: AIDE DATE: 10/18/16 LUNGS: Clear to auscultation anteriorly. He has good breath sounds, posterior wheatley although somewhat diminished in the right base. No crackles. CARDIAC: Regular rate and rhythm. Normal S1, S2. No murmur, gallop, or rub. He has a pacemaker in the right upper chest without overlying signs of inflammation. ABDOMEN: Bowel sounds to be present, not hyperactive. Soft, nontender. EXTREMITIES: Status post bilateral below-knee amputations. He has a fistula for dialysis in his left arm. LABORATORY STUDIES: White blood cell count yesterday 5.7, hemoglobin 12.3, platelets 183. Albumin 3.4. Liver function tests normal. On 10/14, procalcitonin was 4.36, repeat on 10/16, 4.78. Admission blood cultures negative. Pleural fluid studies showed 246 white blood cells without any neutrophils. LDH of 157 with serum of 291, total protein 4.9 with serum of 7.5, glucose 196. Negative Gram stain. Negative cultures to date. Cytology pending. Chest x-ray following the thoracentesis and again this morning shows marked decrease in the right-sided pleural fluid. IMPRESSION: Other than the elevated procalcitonin, I do not see strong evidence here to suggest that the patient came in with an active pneumonia or has some other ongoing active infection. The CT scan and chest x-ray do not strongly suggest pneumonia. The pleural fluid, while exudative by total protein criteria is otherwise quite benign. The patient has had some episodic loose stools but not severe and no significant diarrhea overnight and overall, I doubt C. diff colitis. PLAN: 1. I will stop the Zosyn after the last dose today which will complete a five-day course of therapy. 2. We will follow up on the pleural fluid cytology. 3. I would not order C. diff test. KOKO/AIDE Marilu Bazzi M.D. / [id number] CC: Keisha Hill M.D. Claude Galphin, M.D.
[~2016-10-13 17:47] MED LIST: AMB10 PO; ASA5GR PO; ASAB PO; ASAEC PO; BENTYL10 PO; CEFAZ1 IM; COREG12 PO; COREG6 PO; COZAAR100 MG PO; LANTUS SC; LANTUSCART SC; LEVAQUIN5T PO; LIPITOR20 PO; LIPITOR40 PO; LOP25 PO; MAGNEBIND PO; MAGOX4 PO; MICARDIS40 PO; MICARDIS80 PO; MIRALAXPKT PO; MUCINEX600 MG PO; NEPHRO PO; NEPHRO-VITE PO; NIFEDIAC CC60 MG PO; NITROSTAT0.4 MG SL; NORV25 PO; NOVOLOG SC; NOVOPEN SC; NTG150 SL; PCET PO; PERCOCET1 TA4 PO; PLAVIX PO; PR12.5 PO; PROAIR HFA INH; PROBIOTIC PO; REG PO; RENA-VITE PO; SENSIPAR30 M1 PO; TUMSROLL PO; [UNRECOGNIZED DRUG - OTHER]
[2016-10-13 19:16] LABS: BASOPHILS ABSOLUTE 0.06 10/3/uL (0.0-0.16); EOSINOPHILS ABSOLUTE 0.06 10/3/uL (0.0-0.53); ER CBC TAT 0 Hrs 13 Mins; IMMATURE GRANULOCYTES 0.2 %; IMMATURE GRANULOCYTES ABSOLUTE 0.01 10/3/uL (0.0-0.11); LYMPHOCYTES 16.7 %; LYMPHOCYTES ABSOLUTE 1.03 10/3/uL (0.67-4.30); MEAN CORPUS HGB CONC 31.7 g/dL (32.0-36.0); MEAN CORPUSCULAR HEMOGLOB 26.9 pg (26.0-34.0); MONOCYTES 16.8 %; MONOCYTES ABSOLUTE 1.04 10/3/uL (0.21-1.20); NEUTROPHILS 64.3 %; NEUTROPHILS ABSOLUTE 3.98 10/3/uL (2.02-8.40); PLATELET COUNT 220 10/3/uL (150-400); RBC DISTRIBUTION WIDTH 20.3 % (12.0-16.0); WHITE BLOOD CELLS 6.2 10/3/uL (4.5-10.5)
[2016-10-13 19:17] LABS: HEMATOCRIT 40.7 % (40.0-51.0); HEMOGLOBIN 12.9 g/dL (13.6-17.8); MANUAL DIFF NO %; RED CELL COUNT 4.79 10/6/uL (4.7-6.1)
[2016-10-13 19:24] LABS: INTERNATIONAL NORMAL RATI 1.2 UNITS (-); PARTIAL THROMBO TIME 38.7 SEC (22.5-37.2)
[2016-10-13 19:26] LABS: PROTIME (NOT ORD) 15.2 SEC (12.0-14.5)
[2016-10-13 19:56] LABS: ANISOCYTOSIS 1+ (5-10/OIF) (0-5/OIF); GIANT PLATELET OCC; PLATELET ESTIMATE ADQ (ADEQUATE)
[2016-10-13 20:34] LABS: CALCIUM, SERUM 8.6 MG/DL (8.5-10.4); CHLORIDE, SERUM 97 MMOL/L (96-112); CO2 (CARBON DIOXIDE) 29 MMOL/L (24-34); SODIUM, SERUM 134 MMOL/L (135-148)
[2016-10-13 20:38] LABS: BUN (BLOOD UREA NITROGEN) 20 MG/DL (6-23); CREATININE 3.65 MG/DL (0.70-1.30); GFR AFRICAN AMERICAN 19 ML/MIN (>=60); GFR NON AFRICAN AMERICAN 16 ML/MIN (>=60); GLUCOSE, SERUM 91 MG/DL (60-99); POTASSIUM, SERUM 3.6 MMOL/L (3.5-5.3)
[2016-10-13 20:39] LABS: CHEST PAIN PROFILE TAT 0 Hrs 27 Mins; TROPONIN I 0.22 NG/ML (<0.05)
[2016-10-13] MEDS ORDERED: PLAVIX PO (22:21)
[2016-10-13] MEDS ORDERED: LANTUSCART SC (22:21)
[2016-10-13] MEDS ORDERED: NOVOPEN SC (22:21)
[2016-10-13] MEDS ORDERED: PHOSLO PO (22:21)
[2016-10-13] MEDS ORDERED: COREG3 PO (22:22)
[2016-10-13] MEDS ORDERED: NEPHRO-VITE PO (22:22)
[2016-10-13] MEDS ORDERED: SENSIPAR30 M1 PO (22:22)
[2016-10-13] MEDS ORDERED: PROBIOTIC PO (22:22)
[2016-10-13] MEDS ORDERED: PROAIR HFA INH (22:23)
[2016-10-13] MEDS ORDERED: TUMSROLL PO (22:23)
[2016-10-13] MEDS ORDERED: ASA5GR PO (22:23)
[2016-10-13] MEDS ORDERED: RESTORIL30 MG PO (22:23)
[2016-10-13] MEDS ORDERED: LIPITOR40 PO (22:23)
[2016-10-13] MEDS ORDERED: MUCINEX DM PO (22:24)
[2016-10-13] MEDS ORDERED: NITROQUICK0.4 MG PO (22:24)
[2016-10-14 07:03] LABS: BASOPHILS 1.3 %; BASOPHILS ABSOLUTE 0.07 10/3/uL (0.0-0.16); EOSINOPHILS 1.9 %; HEMATOCRIT 39.3 % (40.0-51.0); HEMOGLOBIN 12.2 g/dL (13.6-17.8); IMMATURE GRANULOCYTES 0.2 %; IMMATURE GRANULOCYTES ABSOLUTE 0.01 10/3/uL (0.0-0.11); LYMPHOCYTES 20.3 %; LYMPHOCYTES ABSOLUTE 1.09 10/3/uL (0.67-4.30); MEAN CORPUSCULAR HEMOGLOB 27.5 pg (26.0-34.0); MEAN PLATELET VOLUME 11.2 fL (9.2-13.0); MONOCYTES 13.8 %; MONOCYTES ABSOLUTE 0.74 10/3/uL (0.21-1.20); NEUTROPHILS 62.5 %; NEUTROPHILS ABSOLUTE 3.36 10/3/uL (2.02-8.40); PLATELET COUNT 177 10/3/uL (150-400); RBC DISTRIBUTION WIDTH 18.7 % (12.0-16.0); RED CELL COUNT 4.44 10/6/uL (4.7-6.1); WHITE BLOOD CELLS 5.4 10/3/uL (4.5-10.5)
[2016-10-14 07:10] LABS: MANUAL DIFF NO %; MEAN CORPUSCULAR VOLUME 88.5 fL (80-100)
[2016-10-14 07:14] LABS: CALCIUM, SERUM 8.4 MG/DL (8.5-10.4); CHLORIDE, SERUM 100 MMOL/L (96-112); CO2 (CARBON DIOXIDE) 26 MMOL/L (24-34); PHOSPHORUS, SERUM 2.4 MG/DL (2.5-4.5); SODIUM, SERUM 136 MMOL/L (135-148)
[2016-10-14 07:15] LABS: BUN (BLOOD UREA NITROGEN) 24 MG/DL (6-23); GFR AFRICAN AMERICAN 15 ML/MIN (>=60); GFR NON AFRICAN AMERICAN 13 ML/MIN (>=60); GLUCOSE, SERUM 137 MG/DL (60-99); POTASSIUM, SERUM 3.9 MMOL/L (3.5-5.3); TROPONIN I 0.19 NG/ML (<0.05)
[2016-10-14 13:16] LABS: TROPONIN I 0.23 NG/ML (<0.05)
[2016-10-14 14:34] LABS: PROCALCITONIN 4.36 ng/mL (<0.5)
[2016-10-15 07:14] LABS: HEMATOCRIT 40.7 % (40.0-51.0); HEMOGLOBIN 12.8 g/dL (13.6-17.8); MEAN CORPUS HGB CONC 31.4 g/dL (32.0-36.0); MEAN CORPUSCULAR HEMOGLOB 27.9 pg (26.0-34.0); MEAN CORPUSCULAR VOLUME 88.9 fL (80-100); MEAN PLATELET VOLUME 11.2 fL (9.2-13.0); PLATELET COUNT 175 10/3/uL (150-400); RBC DISTRIBUTION WIDTH 18.6 % (12.0-16.0); RED CELL COUNT 4.58 10/6/uL (4.7-6.1); WHITE BLOOD CELLS 5.8 10/3/uL (4.5-10.5)
[2016-10-15 07:24] LABS: MANUAL DIFF YES %
[2016-10-15 07:26] LABS: ALBUMIN 3.4 G/DL (3.5-5.0); BUN (BLOOD UREA NITROGEN) 25 MG/DL (6-23); CALCIUM, SERUM 8.6 MG/DL (8.5-10.4); CHLORIDE, SERUM 101 MMOL/L (96-112); CO2 (CARBON DIOXIDE) 30 MMOL/L (24-34); CREATININE 4.67 MG/DL (0.70-1.30); GFR AFRICAN AMERICAN 14 ML/MIN (>=60); GFR NON AFRICAN AMERICAN 12 ML/MIN (>=60); PHOSPHORUS, SERUM 2.3 MG/DL (2.5-4.5); POTASSIUM, SERUM 3.8 MMOL/L (3.5-5.3); SODIUM, SERUM 138 MMOL/L (135-148)
[2016-10-15 07:27] LABS: GLUCOSE, SERUM 105 MG/DL (60-99)
[2016-10-15 07:49] LABS: ANISOCYTOSIS 1+ (5-10/OIF) (0-5/OIF); EOSINOPHILS 3 %; EOSINOPHILS ABSOLUTE (CALC) 0.17 10/3/uL (0.0-0.53); LYMPHOCYTES 18 %; LYMPHOCYTES ABSOLUTE (CALC) 1.04 10/3/uL (0.67-4.30); MONOCYTES 16 %; MONOCYTES ABSOLUTE (CALC) 0.93 10/3/uL (0.21-1.20); NEUTROPHILS ABSOLUTE (CALC) 3.65 10/3/uL (2.02-8.40); PLATELET ESTIMATE ADQ (ADEQUATE); SEGMENTED NEUTROPHIL (0) 63 %; TOTAL NUCLEATED CELLS 100
[2016-10-16 12:33] LABS: BASOPHILS 0.6 %; BASOPHILS ABSOLUTE 0.04 10/3/uL (0.0-0.16); EOSINOPHILS 1.5 %; HEMATOCRIT 39.8 % (40.0-51.0); HEMOGLOBIN 12.6 g/dL (13.6-17.8); IMMATURE GRANULOCYTES 0.2 %; IMMATURE GRANULOCYTES ABSOLUTE 0.01 10/3/uL (0.0-0.11); LYMPHOCYTES 18.7 %; LYMPHOCYTES ABSOLUTE 1.22 10/3/uL (0.67-4.30); MEAN CORPUS HGB CONC 31.7 g/dL (32.0-36.0); MEAN CORPUSCULAR HEMOGLOB 27.6 pg (26.0-34.0); MEAN CORPUSCULAR VOLUME 87.1 fL (80-100); MEAN PLATELET VOLUME 11.1 fL (9.2-13.0); MONOCYTES 11.6 %; MONOCYTES ABSOLUTE 0.76 10/3/uL (0.21-1.20); NEUTROPHILS 67.4 %; NEUTROPHILS ABSOLUTE 4.41 10/3/uL (2.02-8.40); PLATELET COUNT 179 10/3/uL (150-400); RBC DISTRIBUTION WIDTH 18.8 % (12.0-16.0); RED CELL COUNT 4.57 10/6/uL (4.7-6.1); WHITE BLOOD CELLS 6.5 10/3/uL (4.5-10.5)
[2016-10-16 12:34] LABS: MANUAL DIFF NO %
[2016-10-16 12:42] LABS: ALBUMIN 3.2 G/DL (3.5-5.0); BUN (BLOOD UREA NITROGEN) 41 MG/DL (6-23); CALCIUM, SERUM 9.2 MG/DL (8.5-10.4); CHLORIDE, SERUM 103 MMOL/L (96-112); CO2 (CARBON DIOXIDE) 28 MMOL/L (24-34); GFR AFRICAN AMERICAN 10 ML/MIN (>=60); GFR NON AFRICAN AMERICAN 8 ML/MIN (>=60); GLUCOSE, SERUM 110 MG/DL (60-99); PHOSPHORUS, SERUM 3.3 MG/DL (2.5-4.5); POTASSIUM, SERUM 4.3 MMOL/L (3.5-5.3); SODIUM, SERUM 143 MMOL/L (135-148)
[2016-10-16 13:41] LABS: PROCALCITONIN 4.78 ng/mL (<0.5)
[2016-10-16 14:29] LABS: SGOT(AST) 33 U/L (5-40); TOTAL BILIRUBIN 0.6 MG/DL (0-1.2); TOTAL PROTEIN 7.4 G/DL (6.0-8.5)
[2016-10-16 14:33] LABS: DIRECT BILIRUBIN 0.2 MG/DL (0.0-0.4); INDIRECT BILIRUBIN(NOT ORDER) 0.4 MG/DL (0.1-0.9); SGPT(ALT) 22 U/L (5-65)
[2016-10-16 14:34] LABS: ALKALINE PHOSPHATASE 86 U/L (45-117)
[2016-10-17 05:43] LABS: BASOPHILS 0.9 %; BASOPHILS ABSOLUTE 0.05 10/3/uL (0.0-0.16); EOSINOPHILS 1.4 %; EOSINOPHILS ABSOLUTE 0.08 10/3/uL (0.0-0.53); HEMATOCRIT 39.8 % (40.0-51.0); HEMOGLOBIN 12.3 g/dL (13.6-17.8); IMMATURE GRANULOCYTES 0.2 %; IMMATURE GRANULOCYTES ABSOLUTE 0.01 10/3/uL (0.0-0.11); LYMPHOCYTES 18.1 %; LYMPHOCYTES ABSOLUTE 1.04 10/3/uL (0.67-4.30); MEAN CORPUS HGB CONC 30.9 g/dL (32.0-36.0); MEAN CORPUSCULAR HEMOGLOB 27.5 pg (26.0-34.0); MEAN CORPUSCULAR VOLUME 88.8 fL (80-100); MEAN PLATELET VOLUME 11.4 fL (9.2-13.0); MONOCYTES 16.7 %; MONOCYTES ABSOLUTE 0.96 10/3/uL (0.21-1.20); NEUTROPHILS 62.7 %; PLATELET COUNT 183 10/3/uL (150-400); RED CELL COUNT 4.48 10/6/uL (4.7-6.1); WHITE BLOOD CELLS 5.7 10/3/uL (4.5-10.5)
[2016-10-17 05:44] LABS: MANUAL DIFF NO %
[2016-10-17 05:58] LABS: ALBUMIN 3.4 G/DL (3.5-5.0); CALCIUM, SERUM 9.2 MG/DL (8.5-10.4); CHLORIDE, SERUM 101 MMOL/L (96-112); CO2 (CARBON DIOXIDE) 31 MMOL/L (24-34); PHOSPHORUS, SERUM 2.8 MG/DL (2.5-4.5); POTASSIUM, SERUM 4.1 MMOL/L (3.5-5.3); SODIUM, SERUM 140 MMOL/L (135-148)
[2016-10-17 05:59] LABS: BUN (BLOOD UREA NITROGEN) 30 MG/DL (6-23); CREATININE 5.22 MG/DL (0.70-1.30); GFR AFRICAN AMERICAN 12 ML/MIN (>=60); GFR NON AFRICAN AMERICAN 11 ML/MIN (>=60); GLUCOSE, SERUM 209 MG/DL (60-99)
[2016-10-17 11:48] LABS: TOTAL PROTEIN 7.5 G/DL (6.0-8.5)
[2016-10-17 12:15] LABS: BD FL LYMPH (NOT ORD) 57 %; BF BASO (NOT OF) 0 %; BF LARGE MONONUCLEAR 43 %; BODY FLUID EOS (NOT ORD) 0 %; BODY FLUID SEG (NOT ORD) 0 %
[2016-10-17 12:47] LABS: GLUCOSE BODY FL (NOT ORD) 196 MG/DL; LDH BODY FLUID (NOT ORD) 157 U/L; PROTEIN BODY FLUID 4.9 G/DL
[2016-10-17 13:32] LABS: BF TOTAL CELL CT (NOT ORD 246 /MM3; BODY FLUID RBC (NOT ORD) 1802 /MM3
[2016-10-18 08:28] LABS: BASOPHILS 0.7 %; BASOPHILS ABSOLUTE 0.04 10/3/uL (0.0-0.16); EOSINOPHILS 1.2 %; EOSINOPHILS ABSOLUTE 0.07 10/3/uL (0.0-0.53); HEMATOCRIT 39.4 % (40.0-51.0); HEMOGLOBIN 12.5 g/dL (13.6-17.8); IMMATURE GRANULOCYTES 0.2 %; IMMATURE GRANULOCYTES ABSOLUTE 0.01 10/3/uL (0.0-0.11); LYMPHOCYTES 23.2 %; LYMPHOCYTES ABSOLUTE 1.37 10/3/uL (0.67-4.30); MEAN CORPUS HGB CONC 31.7 g/dL (32.0-36.0); MEAN CORPUSCULAR HEMOGLOB 27.6 pg (26.0-34.0); MEAN PLATELET VOLUME 10.9 fL (9.2-13.0); MONOCYTES 11.5 %; MONOCYTES ABSOLUTE 0.68 10/3/uL (0.21-1.20); NEUTROPHILS 63.2 %; NEUTROPHILS ABSOLUTE 3.73 10/3/uL (2.02-8.40); PLATELET COUNT 170 10/3/uL (150-400); RBC DISTRIBUTION WIDTH 18.6 % (12.0-16.0); RED CELL COUNT 4.53 10/6/uL (4.7-6.1); WHITE BLOOD CELLS 5.9 10/3/uL (4.5-10.5)
[2016-10-18 08:30] LABS: MANUAL DIFF NO %
[2016-10-18 08:37] LABS: ALBUMIN 3.1 G/DL (3.5-5.0); BUN (BLOOD UREA NITROGEN) 45 MG/DL (6-23); CALCIUM, SERUM 9.1 MG/DL (8.5-10.4); CHLORIDE, SERUM 101 MMOL/L (96-112); CO2 (CARBON DIOXIDE) 27 MMOL/L (24-34); CREATININE 6.94 MG/DL (0.70-1.30); GFR AFRICAN AMERICAN 9 ML/MIN (>=60); GFR NON AFRICAN AMERICAN 7 ML/MIN (>=60); GLUCOSE, SERUM 262 MG/DL (60-99); PHOSPHORUS, SERUM 3.1 MG/DL (2.5-4.5); POTASSIUM, SERUM 4.1 MMOL/L (3.5-5.3); SODIUM, SERUM 139 MMOL/L (135-148)
[2016-10-19 07:19] LABS: BASOPHILS 0.8 %; BASOPHILS ABSOLUTE 0.05 10/3/uL (0.0-0.16); EOSINOPHILS 1.5 %; EOSINOPHILS ABSOLUTE 0.09 10/3/uL (0.0-0.53); HEMATOCRIT 40.2 % (40.0-51.0); HEMOGLOBIN 12.7 g/dL (13.6-17.8); IMMATURE GRANULOCYTES 0.2 %; IMMATURE GRANULOCYTES ABSOLUTE 0.01 10/3/uL (0.0-0.11); LYMPHOCYTES 25.2 %; LYMPHOCYTES ABSOLUTE 1.53 10/3/uL (0.67-4.30); MEAN CORPUS HGB CONC 31.6 g/dL (32.0-36.0); MEAN CORPUSCULAR HEMOGLOB 27.3 pg (26.0-34.0); MEAN CORPUSCULAR VOLUME 86.3 fL (80-100); MEAN PLATELET VOLUME 10.3 fL (9.2-13.0); MONOCYTES 9.6 %; MONOCYTES ABSOLUTE 0.58 10/3/uL (0.21-1.20); NEUTROPHILS 62.7 %; PLATELET COUNT 147 10/3/uL (150-400); RBC DISTRIBUTION WIDTH 19.1 % (12.0-16.0); RED CELL COUNT 4.66 10/6/uL (4.7-6.1); WHITE BLOOD CELLS 6.1 10/3/uL (4.5-10.5)
[2016-10-19 07:20] LABS: MANUAL DIFF NO %
[2016-10-19 07:29] LABS: ALBUMIN 3.5 G/DL (3.5-5.0); BUN (BLOOD UREA NITROGEN) 29 MG/DL (6-23); CALCIUM, SERUM 9.4 MG/DL (8.5-10.4); CHLORIDE, SERUM 102 MMOL/L (96-112); CO2 (CARBON DIOXIDE) 27 MMOL/L (24-34); GLUCOSE, SERUM 246 MG/DL (60-99); SODIUM, SERUM 139 MMOL/L (135-148)
[2016-10-19 07:31] LABS: CREATININE 5.58 MG/DL (0.70-1.30); GFR AFRICAN AMERICAN 11 ML/MIN (>=60); GFR NON AFRICAN AMERICAN 10 ML/MIN (>=60); PHOSPHORUS, SERUM 2.9 MG/DL (2.5-4.5)
[2016-10-20 08:05] LABS: BASOPHILS 0.7 %; BASOPHILS ABSOLUTE 0.04 10/3/uL (0.0-0.16); EOSINOPHILS 1.9 %; EOSINOPHILS ABSOLUTE 0.11 10/3/uL (0.0-0.53); HEMATOCRIT 40.1 % (40.0-51.0); HEMOGLOBIN 12.8 g/dL (13.6-17.8); LYMPHOCYTES 23.9 %; MANUAL DIFF NO %; MEAN CORPUS HGB CONC 31.9 g/dL (32.0-36.0); MEAN CORPUSCULAR HEMOGLOB 27.6 pg (26.0-34.0); MEAN CORPUSCULAR VOLUME 86.6 fL (80-100); MEAN PLATELET VOLUME 10.9 fL (9.2-13.0); MONOCYTES 13.1 %; MONOCYTES ABSOLUTE 0.77 10/3/uL (0.21-1.20); NEUTROPHILS 60.4 %; NEUTROPHILS ABSOLUTE 3.54 10/3/uL (2.02-8.40); PLATELET COUNT 154 10/3/uL (150-400); RBC DISTRIBUTION WIDTH 18.6 % (12.0-16.0); RED CELL COUNT 4.63 10/6/uL (4.7-6.1); WHITE BLOOD CELLS 5.9 10/3/uL (4.5-10.5)
[2016-10-20 08:40] LABS: ALBUMIN 3.3 G/DL (3.5-5.0); CALCIUM, SERUM 9.4 MG/DL (8.5-10.4); CHLORIDE, SERUM 100 MMOL/L (96-112); CO2 (CARBON DIOXIDE) 27 MMOL/L (24-34); GLUCOSE, SERUM 213 MG/DL (60-99); POTASSIUM, SERUM 4.2 MMOL/L (3.5-5.3); SODIUM, SERUM 136 MMOL/L (135-148)
[2016-10-20 08:41] LABS: BUN (BLOOD UREA NITROGEN) 39 MG/DL (6-23); CREATININE 7.02 MG/DL (0.70-1.30); GFR AFRICAN AMERICAN 9 ML/MIN (>=60); GFR NON AFRICAN AMERICAN 7 ML/MIN (>=60); PHOSPHORUS, SERUM 3.9 MG/DL (2.5-4.5)
[2016-10-20 20:32] LABS: HEMATOCRIT 42.6 % (40.0-51.0); HEMOGLOBIN 13.4 g/dL (13.6-17.8)
[2016-10-21 04:57] LABS: BASOPHILS 0.2 %; BASOPHILS ABSOLUTE 0.02 10/3/uL (0.0-0.16); EOSINOPHILS 0 %; HEMATOCRIT 41.8 % (40.0-51.0); IMMATURE GRANULOCYTES 0.1 %; IMMATURE GRANULOCYTES ABSOLUTE 0.01 10/3/uL (0.0-0.11); LYMPHOCYTES 9.1 %; LYMPHOCYTES ABSOLUTE 0.73 10/3/uL (0.67-4.30); MEAN CORPUS HGB CONC 31.1 g/dL (32.0-36.0); MEAN CORPUSCULAR HEMOGLOB 27.6 pg (26.0-34.0); MEAN CORPUSCULAR VOLUME 88.7 fL (80-100); MONOCYTES 3.5 %; MONOCYTES ABSOLUTE 0.28 10/3/uL (0.21-1.20); NEUTROPHILS 87.1 %; PLATELET COUNT 147 10/3/uL (150-400); RBC DISTRIBUTION WIDTH 18.7 % (12.0-16.0); RED CELL COUNT 4.71 10/6/uL (4.7-6.1)
[2016-10-21 04:58] LABS: MANUAL DIFF NO %
[2016-10-21 05:18] LABS: ALBUMIN 3.3 G/DL (3.5-5.0); CALCIUM, SERUM 8.9 MG/DL (8.5-10.4); CHLORIDE, SERUM 103 MMOL/L (96-112); CO2 (CARBON DIOXIDE) 26 MMOL/L (24-34); GLUCOSE, SERUM 252 MG/DL (60-99); SODIUM, SERUM 140 MMOL/L (135-148)
[2016-10-21 05:20] LABS: BUN (BLOOD UREA NITROGEN) 31 MG/DL (6-23); CREATININE 5.71 MG/DL (0.70-1.30); GFR AFRICAN AMERICAN 11 ML/MIN (>=60); GFR NON AFRICAN AMERICAN 9 ML/MIN (>=60); PHOSPHORUS, SERUM 5.4 MG/DL (2.5-4.5); POTASSIUM, SERUM 5.1 MMOL/L (3.5-5.3)
[2016-10-22 03:54] LABS: BASOPHILS 0.3 %; BASOPHILS ABSOLUTE 0.04 10/3/uL (0.0-0.16); EOSINOPHILS 0.8 %; EOSINOPHILS ABSOLUTE 0.09 10/3/uL (0.0-0.53); HEMOGLOBIN 15.3 g/dL (13.6-17.8); IMMATURE GRANULOCYTES 0.2 %; IMMATURE GRANULOCYTES ABSOLUTE 0.02 10/3/uL (0.0-0.11); LYMPHOCYTES 23.2 %; LYMPHOCYTES ABSOLUTE 2.71 10/3/uL (0.67-4.30); MEAN CORPUS HGB CONC 31.7 g/dL (32.0-36.0); MEAN CORPUSCULAR HEMOGLOB 27.5 pg (26.0-34.0); MEAN CORPUSCULAR VOLUME 86.5 fL (80-100); MEAN PLATELET VOLUME 11.9 fL (9.2-13.0); MONOCYTES 15.1 %; MONOCYTES ABSOLUTE 1.77 10/3/uL (0.21-1.20); NEUTROPHILS 60.4 %; NEUTROPHILS ABSOLUTE 7.06 10/3/uL (2.02-8.40); PLATELET COUNT 164 10/3/uL (150-400); RBC DISTRIBUTION WIDTH 18.5 % (12.0-16.0); RED CELL COUNT 5.57 10/6/uL (4.7-6.1)
[2016-10-22 03:56] LABS: HEMATOCRIT 48.2 % (40.0-51.0); MANUAL DIFF NO %; WHITE BLOOD CELLS 11.7 10/3/uL (4.5-10.5)
[2016-10-22 04:02] LABS: ALBUMIN 3.3 G/DL (3.5-5.0); CALCIUM, SERUM 8.6 MG/DL (8.5-10.4); CHLORIDE, SERUM 97 MMOL/L (96-112); CO2 (CARBON DIOXIDE) 22 MMOL/L (24-34); POTASSIUM, SERUM 4.7 MMOL/L (3.5-5.3)
[2016-10-22 04:06] LABS: BUN (BLOOD UREA NITROGEN) 45 MG/DL (6-23); CREATININE 6.93 MG/DL (0.70-1.30); GFR AFRICAN AMERICAN 9 ML/MIN (>=60); GFR NON AFRICAN AMERICAN 7 ML/MIN (>=60); GLUCOSE, SERUM 134 MG/DL (60-99); PHOSPHORUS, SERUM 4.2 MG/DL (2.5-4.5); SODIUM, SERUM 132 MMOL/L (135-148)
[2016-10-22 04:22] LABS: ANISOCYTOSIS 1+ (5-10/OIF) (0-5/OIF); PLATELET ESTIMATE ADQ (ADEQUATE)
[2016-10-22 04:23] LABS: MACROCYTES 1+ (5-10/OIF) (0-5/OIF); POLYCHROMASIA 1+ (2-5/OIF) (0-1/OIF)
[2016-10-23 05:33] LABS: BASOPHILS 0.2 %; BASOPHILS ABSOLUTE 0.02 10/3/uL (0.0-0.16); EOSINOPHILS 1.1 %; EOSINOPHILS ABSOLUTE 0.09 10/3/uL (0.0-0.53); IMMATURE GRANULOCYTES 0.2 %; IMMATURE GRANULOCYTES ABSOLUTE 0.02 10/3/uL (0.0-0.11); LYMPHOCYTES 16.1 %; LYMPHOCYTES ABSOLUTE 1.31 10/3/uL (0.67-4.30); MEAN CORPUS HGB CONC 32.9 g/dL (32.0-36.0); MEAN CORPUSCULAR HEMOGLOB 27.9 pg (26.0-34.0); MEAN PLATELET VOLUME 11.1 fL (9.2-13.0); MONOCYTES 13.1 %; MONOCYTES ABSOLUTE 1.07 10/3/uL (0.21-1.20); NEUTROPHILS 69.3 %; NEUTROPHILS ABSOLUTE 5.64 10/3/uL (2.02-8.40); PLATELET COUNT 121 10/3/uL (150-400); RBC DISTRIBUTION WIDTH 18.1 % (12.0-16.0); WHITE BLOOD CELLS 8.2 10/3/uL (4.5-10.5)
[2016-10-23 05:36] LABS: HEMATOCRIT 35.6 % (40.0-51.0); HEMOGLOBIN 11.7 g/dL (13.6-17.8); MANUAL DIFF NO %; RED CELL COUNT 4.19 10/6/uL (4.7-6.1)
[2016-10-23 05:44] LABS: ALBUMIN 3.2 G/DL (3.5-5.0); CALCIUM, SERUM 8.5 MG/DL (8.5-10.4); CHLORIDE, SERUM 94 MMOL/L (96-112); CO2 (CARBON DIOXIDE) 24 MMOL/L (24-34); PHOSPHORUS, SERUM 4.1 MG/DL (2.5-4.5); POTASSIUM, SERUM 4.5 MMOL/L (3.5-5.3); SODIUM, SERUM 131 MMOL/L (135-148)
[2016-10-23 05:46] LABS: BUN (BLOOD UREA NITROGEN) 65 MG/DL (6-23); GFR AFRICAN AMERICAN 7 ML/MIN (>=60); GFR NON AFRICAN AMERICAN 6 ML/MIN (>=60); GLUCOSE, SERUM 305 MG/DL (60-99)
[2016-10-23 06:03] LABS: ANISOCYTOSIS 1+ (5-10/OIF) (0-5/OIF); EOSINOPHILS 1 %; EOSINOPHILS ABSOLUTE (CALC) 0.08 10/3/uL (0.0-0.53); LYMPHOCYTES 11 %; MONOCYTES 11 %; NEUTROPHILS ABSOLUTE (CALC) 6.31 10/3/uL (2.02-8.40); PLATELET ESTIMATE SLT DEC (ADEQUATE); POIKILOCYTOSIS 1+ (5-10/OIF) (0-5/OIF); RBC MORPHOLOGY ABN (NORMAL); SEGMENTED NEUTROPHIL (0) 77 %; TOTAL NUCLEATED CELLS 100
[2016-10-24 05:21] LABS: BASOPHILS 0.4 %; BASOPHILS ABSOLUTE 0.03 10/3/uL (0.0-0.16); EOSINOPHILS 2.1 %; EOSINOPHILS ABSOLUTE 0.17 10/3/uL (0.0-0.53); HEMATOCRIT 37.1 % (40.0-51.0); HEMOGLOBIN 11.8 g/dL (13.6-17.8); IMMATURE GRANULOCYTES 0.3 %; IMMATURE GRANULOCYTES ABSOLUTE 0.02 10/3/uL (0.0-0.11); LYMPHOCYTES 17.2 %; LYMPHOCYTES ABSOLUTE 1.37 10/3/uL (0.67-4.30); MEAN CORPUS HGB CONC 31.8 g/dL (32.0-36.0); MEAN CORPUSCULAR HEMOGLOB 27.4 pg (26.0-34.0); MEAN CORPUSCULAR VOLUME 86.3 fL (80-100); MEAN PLATELET VOLUME 11.8 fL (9.2-13.0); MONOCYTES 15.7 %; MONOCYTES ABSOLUTE 1.25 10/3/uL (0.21-1.20); NEUTROPHILS 64.3 %; NEUTROPHILS ABSOLUTE 5.14 10/3/uL (2.02-8.40); PLATELET COUNT 147 10/3/uL (150-400); RBC DISTRIBUTION WIDTH 18.6 % (12.0-16.0)
[2016-10-24 05:27] LABS: MANUAL DIFF NO %
[2016-10-24 05:47] LABS: ALBUMIN 3.1 G/DL (3.5-5.0); CALCIUM, SERUM 8.6 MG/DL (8.5-10.4); CHLORIDE, SERUM 103 MMOL/L (96-112); CO2 (CARBON DIOXIDE) 24 MMOL/L (24-34); POTASSIUM, SERUM 4.2 MMOL/L (3.5-5.3)
[2016-10-24 05:48] LABS: BUN (BLOOD UREA NITROGEN) 33 MG/DL (6-23); CREATININE 5.96 MG/DL (0.70-1.30); GFR AFRICAN AMERICAN 10 ML/MIN (>=60); GFR NON AFRICAN AMERICAN 9 ML/MIN (>=60); GLUCOSE, SERUM 199 MG/DL (60-99); PHOSPHORUS, SERUM 1.9 MG/DL (2.5-4.5); SODIUM, SERUM 140 MMOL/L (135-148)
[2016-10-25 08:39] LABS: BASOPHILS 0.5 %; BASOPHILS ABSOLUTE 0.03 10/3/uL (0.0-0.16); EOSINOPHILS ABSOLUTE 0.19 10/3/uL (0.0-0.53); HEMATOCRIT 34.4 % (40.0-51.0); HEMOGLOBIN 11.4 g/dL (13.6-17.8); IMMATURE GRANULOCYTES 0.2 %; IMMATURE GRANULOCYTES ABSOLUTE 0.01 10/3/uL (0.0-0.11); LYMPHOCYTES 17.9 %; LYMPHOCYTES ABSOLUTE 1.15 10/3/uL (0.67-4.30); MEAN CORPUS HGB CONC 33.1 g/dL (32.0-36.0); MEAN CORPUSCULAR HEMOGLOB 27.9 pg (26.0-34.0); MEAN CORPUSCULAR VOLUME 84.1 fL (80-100); MEAN PLATELET VOLUME 11.3 fL (9.2-13.0); MONOCYTES ABSOLUTE 1.22 10/3/uL (0.21-1.20); NEUTROPHILS 59.4 %; NEUTROPHILS ABSOLUTE 3.83 10/3/uL (2.02-8.40); PLATELET COUNT 142 10/3/uL (150-400); RBC DISTRIBUTION WIDTH 18.9 % (12.0-16.0); RED CELL COUNT 4.09 10/6/uL (4.7-6.1); WHITE BLOOD CELLS 6.4 10/3/uL (4.5-10.5)
[2016-10-25 08:40] LABS: MANUAL DIFF NO %
[2016-10-25 08:55] LABS: ALBUMIN 2.8 G/DL (3.5-5.0); CALCIUM, SERUM 8.5 MG/DL (8.5-10.4); CHLORIDE, SERUM 100 MMOL/L (96-112); CO2 (CARBON DIOXIDE) 23 MMOL/L (24-34); POTASSIUM, SERUM 4.6 MMOL/L (3.5-5.3); SODIUM, SERUM 135 MMOL/L (135-148)
[2016-10-25 08:56] LABS: BUN (BLOOD UREA NITROGEN) 44 MG/DL (6-23); CREATININE 8.05 MG/DL (0.70-1.30); GFR AFRICAN AMERICAN 7 ML/MIN (>=60); GFR NON AFRICAN AMERICAN 6 ML/MIN (>=60); GLUCOSE, SERUM 129 MG/DL (60-99)
[2016-10-26 05:38] LABS: BASOPHILS 0.4 %; BASOPHILS ABSOLUTE 0.02 10/3/uL (0.0-0.16); EOSINOPHILS 3.4 %; EOSINOPHILS ABSOLUTE 0.19 10/3/uL (0.0-0.53); HEMATOCRIT 36.8 % (40.0-51.0); HEMOGLOBIN 11.7 g/dL (13.6-17.8); IMMATURE GRANULOCYTES 0.5 %; IMMATURE GRANULOCYTES ABSOLUTE 0.03 10/3/uL (0.0-0.11); LYMPHOCYTES 22.8 %; LYMPHOCYTES ABSOLUTE 1.29 10/3/uL (0.67-4.30); MANUAL DIFF NO %; MEAN CORPUS HGB CONC 31.8 g/dL (32.0-36.0); MEAN CORPUSCULAR HEMOGLOB 27.4 pg (26.0-34.0); MEAN CORPUSCULAR VOLUME 86.2 fL (80-100); MEAN PLATELET VOLUME 10.7 fL (9.2-13.0); MONOCYTES 16.3 %; MONOCYTES ABSOLUTE 0.92 10/3/uL (0.21-1.20); NEUTROPHILS 56.6 %; PLATELET COUNT 164 10/3/uL (150-400); RBC DISTRIBUTION WIDTH 19.2 % (12.0-16.0); RED CELL COUNT 4.27 10/6/uL (4.7-6.1); WHITE BLOOD CELLS 5.7 10/3/uL (4.5-10.5)
[2016-10-26 05:42] LABS: ALBUMIN 2.8 G/DL (3.5-5.0); CALCIUM, SERUM 8.6 MG/DL (8.5-10.4); CHLORIDE, SERUM 100 MMOL/L (96-112); CO2 (CARBON DIOXIDE) 23 MMOL/L (24-34); PHOSPHORUS, SERUM 2.6 MG/DL (2.5-4.5); POTASSIUM, SERUM 4.1 MMOL/L (3.5-5.3); SODIUM, SERUM 138 MMOL/L (135-148)
[2016-10-26 05:43] LABS: BUN (BLOOD UREA NITROGEN) 27 MG/DL (6-23); CREATININE 5.89 MG/DL (0.70-1.30); GFR AFRICAN AMERICAN 11 ML/MIN (>=60); GFR NON AFRICAN AMERICAN 9 ML/MIN (>=60); GLUCOSE, SERUM 161 MG/DL (60-99)
[2016-10-27 09:23] LABS: BASOPHILS 0.5 %; BASOPHILS ABSOLUTE 0.03 10/3/uL (0.0-0.16); EOSINOPHILS 3.6 %; HEMATOCRIT 35.8 % (40.0-51.0); HEMOGLOBIN 11.7 g/dL (13.6-17.8); IMMATURE GRANULOCYTES 0.2 %; IMMATURE GRANULOCYTES ABSOLUTE 0.01 10/3/uL (0.0-0.11); LYMPHOCYTES 30.7 %; LYMPHOCYTES ABSOLUTE 1.73 10/3/uL (0.67-4.30); MEAN CORPUS HGB CONC 32.7 g/dL (32.0-36.0); MEAN CORPUSCULAR HEMOGLOB 27.5 pg (26.0-34.0); MEAN PLATELET VOLUME 10.2 fL (9.2-13.0); MONOCYTES 11.2 %; MONOCYTES ABSOLUTE 0.63 10/3/uL (0.21-1.20); NEUTROPHILS 53.8 %; NEUTROPHILS ABSOLUTE 3.03 10/3/uL (2.02-8.40); PLATELET COUNT 152 10/3/uL (150-400); RED CELL COUNT 4.26 10/6/uL (4.7-6.1); WHITE BLOOD CELLS 5.6 10/3/uL (4.5-10.5)
[2016-10-27 09:26] LABS: MANUAL DIFF NO %
[2016-10-27 09:36] LABS: ALBUMIN 2.8 G/DL (3.5-5.0); BUN (BLOOD UREA NITROGEN) 27 MG/DL (6-23); CALCIUM, SERUM 8.4 MG/DL (8.5-10.4); CHLORIDE, SERUM 102 MMOL/L (96-112); CREATININE 5.59 MG/DL (0.70-1.30); GFR AFRICAN AMERICAN 11 ML/MIN (>=60); GFR NON AFRICAN AMERICAN 10 ML/MIN (>=60); PHOSPHORUS, SERUM 2.4 MG/DL (2.5-4.5); POTASSIUM, SERUM 3.4 MMOL/L (3.5-5.3); SODIUM, SERUM 137 MMOL/L (135-148)
[2016-10-27 09:37] LABS: CO2 (CARBON DIOXIDE) 28 MMOL/L (24-34); GLUCOSE, SERUM 110 MG/DL (60-99)
[2016-10-27] MEDS ORDERED: VITC500 PO (16:44)
[2016-10-27] MEDS ORDERED: BISR PR (16:45)
[2016-10-27] MEDS ORDERED: PROAMATINE10 MG PO (16:50)
[2016-10-27] MEDS ORDERED: SENSIPAR30 M1 PO (16:53)
[2016-10-28] MEDS ORDERED: MIRALAX POWDER1 PKT PO (09:32)
[2016-10-28] MEDS ORDERED: MUCINEX600 MG PO (09:36)
[2016-12-07] MEDS ORDERED: NOVOLOG SC (14:41)
[2016-12-07] MEDS ORDERED: ASABAYER PO (14:41)
[2016-12-07] MEDS ORDERED: NEPHRO-VITE PO (14:42)
[2016-12-07] MEDS ORDERED: LIPITOR40 PO (14:42)
[2016-12-07] MEDS ORDERED: LIOR10 PO (14:42)
[2016-12-07] MEDS ORDERED: REST15 PO (14:42)
[2016-12-07] MEDS ORDERED: PROAMAT5 PO (14:43)
[2016-12-07] MEDS ORDERED: LANTUS SC (14:43)
[2016-12-07] MEDS ORDERED: PLAVIX PO (14:43)
[2016-12-07] MEDS ORDERED: COREG3 PO (14:43)
[2016-12-07] MEDS ORDERED: PR25 PO (14:45)
== END 2016-10-28 15:22 | disposition home or self-care (01) | DRG 871 ==
LOC: ER 17:47 → 2SO 22:30 → 5SO 23:36 → IMCU 10-20 20:51 → 2SO 10-25 14:27
PROVIDERS: Emergency Medicine; Internal Medicine Nephrology; Nurse Practitioner; Physician Assistant Medical; Registered Nurse
PROC: 5A1D60Z (ICD-10-PCS; principal; 2016-10-14)
PROC: 0W993ZZ Drainage of Right Pleural Cavity, Percutaneous Approach (ICD-10-PCS; 2016-10-17)
DX: A41.9 Sepsis, unspecified organism (principal); N18.6 End stage renal disease; E43 Unspecified severe protein-calorie malnutrition; I50.21 Acute systolic (congestive) heart failure; J90 Pleural effusion, not elsewhere classified; I48.2 Chronic atrial fibrillation; T87.44 Infection of amputation stump, left lower extremity; E11.22 Type 2 diabetes mellitus with diabetic chronic kidney disease; I13.2 Hypertensive heart and chronic kidney disease with heart failure and with stage 5 chronic kidney disease, or end stage renal disease; J98.11 Atelectasis; Z99.2 Dependence on renal dialysis; Z89.519 Acquired absence of unspecified leg below knee; Z68.26 Body mass index [BMI] 26.0-26.9, adult
CPT/HCPCS: 71010; 71250; 80048; 80069; 80076; 82247; 82248; 82945; 82962; 83615; 83735; 83880; 84145; 84155; 84157; 84484; 85014; 85018; 85025; 85610; 85730; 87015; 87040; 87070; 87075; 87102; 87116; 87205; 87641; 88112; 88305; 89051; 93005; 93288; 94640; 99291; A9270-GY; C1751; C1769; G0257; G0463; J0690; J1170; J1956; J2250; J2370; J2405; J2543; J2710; J2765; J2795; J3010; J3370; J3475; P9045; P9047

== ENCOUNTER 2016-11-10 21:31 | Inpatient (IN) | payer BC ==
--- NOTE | ~2016-11-10 | CN ---
Consultation Report [facility] [address] [place]. [address] NAME: APOLLO THAO : 48 STATUS : ADM IN PAT#: [id number] AGE: 66 ADM/REG DATE : 11/10/16 MR#: [id number] REPORT SERV DATE: 11/22/16 DICTATED BY: RASHEED HUNT DATE: 11/22/16 REPORT STATUS : Draft TRANSCRIBED BY: MODL DATE: 11/22/16 CONSULTATION DATE OF CONSULTATION: 11/21/2016 REASON FOR THE VISIT: Ventricular arrhythmia. HISTORY OF PRESENT ILLNESS: Mr. Thao is a 66-year-old man who is here for fairly systemic pain. He denies chest pain or palpitations. No recent soft shocks or syncope. It has been noticed here in the hospital that he has been having some ventricular beats. I have been asked to evaluate those. Of note, he was here about a month ago, and he was evaluated then for essentially the same thing. He was felt to be stable and no new changes were made. He does have a defibrillator. PAST MEDICAL HISTORY: 1. Recent pleural effusion. 2. Congestive heart failure with AICD. 3. End-stage renal disease, on dialysis. 4. Diabetes. 5. Peripheral vascular disease. 6. History of atrial fibrillation. 7. Coronary artery disease with CABG and RI in the past. SOCIAL HISTORY: He does not smoke. Good family support. FAMILY HISTORY: Noncontributory. ALLERGIES: HE IS ALLERGIC TO SEROQUEL. HOME MEDICATIONS: Please see the list in the chart as it is extensive. Relevant cardiac medications are carvedilol 6.25 mg b.i.d., Plavix 75 mg daily, and aspirin. REVIEW OF SYSTEMS: A 10-system review was asked and is negative except for noted above in the history of present illness and for the following. He has chronic fatigue. No recent cold or flu symptoms. He has stiffness and pain basically from his neck down to his lower back. No recent medication changes. PHYSICAL EXAMINATION: VITAL SIGNS: Mr. Thao is afebrile. Heart rate is 70 and systolic blood pressure 144. GENERAL: Mr. Thao is a well-developed, somewhat chronically ill-appearing man, in no acute distress. He is alert and oriented to person and hospital. HEENT: Negative. He does not appear dehydrated. NECK: There appears to be a little JVD in his neck. Consultation Report [facility] [address] [place]. [address] NAME: APOLLO THAO : [birth year] STATUS : ADM IN PAT#: [id number] AGE: 66 ADM/REG DATE : 11/10/16 MR#: [id number] REPORT SERV DATE: 11/22/16 DICTATED BY: RASHEED HUNT DATE: 11/22/16 REPORT STATUS : Draft TRANSCRIBED BY: MODL DATE: 11/22/16 LUNGS: Have rhonchi bilaterally. No wheezing. HEART: Tones are regular. Some ectopy is heard. A murmur is heard. ABDOMEN: Negative. Good bowel sounds. EXTREMITIES: Does not show edema. NEUROLOGIC: He has normal speech. SKIN: Shows some bruising. No rash. LABORATORY DATA: White blood cell count 9, hematocrit 37.6, and platelet count 288. Sodium 128, potassium 6.1, BUN 79, creatinine is 8. Telemetry: I looked at multiple telemetry strips. On the floor, he does not appear to have any significant ventricular arrhythmia. There are telemetry strips, but they are very small from dialysis. There appears to be some wide-complex beats. The differential would be ventricular pacing versus ventricular tachycardia. I think it is most likely ventricular pacing. IMPRESSION: 1. Congestive heart failure with AICD. 2. Wide-complex beats. PLAN: I will have the [employer] representative interrogate Mr. Thao' AICD. I doubt he is having significant ventricular tachycardia. If he is having any, most likely we will just continue his carvedilol and observe him. Potassium obviously needs to be corrected just a little bit in probably help prevent ventricular arrhythmia. If this is ventricular pacing, then certainly no other intervention needs to be performed from a cardiac standpoint. [facility] [place]/AIDE Rashede Hunt M.D. / [id number] CC: Keisha Santos Jr, M.D.
--- NOTE | ~2016-11-10 | CN ---
Consultation Report [facility] [address] [place]. [address] NAME: APOLLO ELIZABETH : 48 STATUS : ADM Hong PAT#: [id number] AGE: 66 ADM/REG DATE : 11/10/16 MR#: [id number] REPORT SERV DATE: 11/11/16 DICTATED BY: JOVANNI VENTURA DATE: 11/11/16 REPORT STATUS : Draft TRANSCRIBED BY: AIDE DATE: 11/11/16 NEUROLOGICAL EVALUATION DATE OF CONSULTATION: 11/11/2016 This 66-year-old male with prior history of coronary artery disease, hypertension, diabetes mellitus type 2, end-stage renal disease, on hemodialysis, status post bilateral knee amputation for severe peripheral vascular disease and diabetic complication with history of atrial fibrillation, who is admitted at this time with episodes of severe "muscle spasms". The patient's last admission was in October of this year. At that time, the patient had thoracocentesis for complaints of increasing shortness of breath. Prior surgical history includes coronary artery disease bypass graft, below the knee amputation, bilateral fistula insertion of the left arm. ALLERGIES: ADHESIVE TAPE AND VANCOMYCIN CAUSES DIARRHEA. MEDICATIONS: Prior to admission included 1. Aspirin 325. 2. Plavix 75 mg p.o. daily. 3. Atorvastatin 40 mg p.o. daily. 4. Restoril on a p.r.n. basis. 5. Albuterol inhaler. 6. Nephro-Shaneka. 7. PhosLo. 8. Coreg 6.25 mg b.i.d. 9. Sensipar tablet 300 mg on Sunday, Sunday, and Sunday. FAMILY HISTORY: Significant history of hypertension and diabetes mellitus. 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 He has some history of ETOH use in the past although none recently and no history of tobacco use. At present, the patient is being evaluated for recurrent muscle spasm and shaking. Neurological evaluation was requested. PAST MEDICAL HISTORY: Includes 1. End-stage renal disease, on hemodialysis. 2. Severe peripheral vascular disease. 3. Diabetes mellitus x2 for the past 25 years. 4. Long-standing hypertension. Remote history of [place]. 5. Coronary artery disease status post CABG and status post MVR insertion. 6. Wvuor-znx-jgov amputation. 7. History of sepsis, not clear about MRSA status. REVIEW OF SYSTEMS: Were obtained from the patient and the patient's was present at the bedside. The Consultation Report [place] [id number] [facility] [place]. [address] NAME: APOLLO ELIZABETH : 48 STATUS : ADM Hong PAT#: [id number] AGE: 66 ADM/REG DATE : 11/10/16 MR#: [id number] REPORT SERV DATE: 11/11/16 DICTATED BY: JOVANNI VENTURA DATE: 11/11/16 REPORT STATUS : Draft TRANSCRIBED BY: MODCece DATE: 11/11/16 patient denied headaches. Denied previous history of TIA, CVA and denied difficulty with his speech, chewing, and swallowing. Denied weakness involving his arms except for transient weakness after each dialysis. Denied difficulty with his coordination. The patient is severely disabled. As per the patient's , the patient has had difficulty sleeping for a long time. There is no history of seizures. No history of head trauma. The rest of 14 points of review of system was negative. PHYSICAL EXAMINATION: VITAL SIGNS: Blood pressure 142/84, pulse was 87, respirations 14, temperature is 98, and the patient's weight is 70.33 kilos. HEENT: Head and neck examination showed head to be normocephalic. There was evidence of trauma. EYES: Sclerae were not icteric. Conjunctivae pink. ENT: Exam showed airway to be slightly small, Mallampati class 2 to 3. Tongue was midline. No atrophy or fibrillations reported. NECK: Supple. Auscultation of the neck showed no evidence of bruits. There is no Kernig or Brudzinski. Cervical range of motion was not impaired. No JVD. No thyromegaly or lymphadenopathy noted. CHEST: Symmetrical. LUNGS: Showed decreased breath sounds at both lungs in lower lung wheatley. EXTREMITIES: Prominent proximal arm fistula. SKIN: Clear except for scant skin scab present in the left distal forearm which appears to be healing. No hemorrhages, exudate, petechiae, or other abnormalities noted, the patient however has very dry skin. The mucous membranes appeared slightly dry. NEUROLOGICAL EXAMINATION: The patient was alert, oriented to self, time, and place, appeared to have slight difficulty with his distal memory in terms of his dates of his medical procedures and history, however overall his speech was fluent. There was no evidence of aphasia or dysarthria. Thought content and mood were appropriate. The patient was complaining of having intermittent spasms in his legs, back, and arms. CRANIAL NERVE EXAMINATION II-XII: Visual wheatley on confrontation were intact. Funduscopic exam difficult to perform, however, I did not see any hemorrhages or exudates. Noted pupils were 2.5 mm equal and reactive to light and accommodation. Extraocular movements were full. There was no nystagmus. No dysconjugate gaze was noted. Upward and downward gaze was intact. Facial sensation, muscles of mastication, muscles of facial expression show no evidence of asymmetry or weakness. Lower cranial nerves are intact. Tongue was midline. The patient was missing a lot of his teeth. No asymmetry was noted on evaluation of the palate elevated symmetrically. Tongue showed no evidence of atrophy or fibrillations, was midline. Sternocleidomastoid and trapezius muscles show no evidence of asymmetry or weakness. Shoulder shrug was normal. MOTOR EXAM: The patient is silmn-hhz-xxer bilateral amputee. Upper extremity prominent vascular fistula in the left proximal arm. Muscle bulk was decreased diffusely in all extremities; however, no fasciculations were observed on inspection or percussion. Strength appeared intact in upper extremities graded 5 - over 5 throughout, perhaps slightly lower in distal finger muscles. The patient has distal hard finger on the right amputation. Lower Consultation Report [facility] [address] [facility] [place]. [address] NAME: APOLLO ELIZABETH : 48 STATUS : ADM Hong PAT#: [id number] AGE: 66 ADM/REG DATE : 11/10/16 MR#: [id number] REPORT SERV DATE: 11/11/16 DICTATED BY: JOVANNI VENTURA DATE: 11/11/16 REPORT STATUS : Draft TRANSCRIBED BY: MODL DATE: 11/11/16 extremity exam showed xskzx-xdy-[id number] amputation. The stump appeared well healed, status post old amputation. Peripheral pulses were decreased in the femoral region but palpable bilaterally in the upper extremities. Proximal arm fistula on the left. Good bruit noted. Distal pulse was decreased in the distal arm. No cyanosis or edema noted on the inspection of the digits. The patient was able to move his legs well with proximal muscle function showing no significant weakness. I did not detect any spasms that the patient was describing. No fasciculations were noted. There was no visible contracture of the muscles on inspection. There were no contractures on percussion. 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 LABORATORY STUDIES: Sodium 133, potassium 4.3, chloride 96, carbon dioxide 26, BUN 28, creatinine 3.94, glomerular filtration rate 17, glucose 192. WBC count 10.6, hemoglobin 12.8, hematocrit 39.8, MCV 87.1, platelet count 299,000. Normal differential except for slightly elevated monocytes 7.9. PTT 41.3 and PT/INR 1.2. CT of the head which was reviewed and showed no significant acute changes, moderate diffuse atrophy was present. Microvascular changes noted in the basal ganglia. No significant asymmetry in the midline shift noted. IMPRESSION: Intermittent complaints of muscle spasm involving all four extremities as stated with lumbosacral spine pain which appears to be a new complaint in this patient. On examination, the patient did not have evidence of seizures. No abnormal muscle activity was observed during the examination; however, the patient does have asterixis. Lumbosacral and thoracic spine was percussed, no evidence of acute pain to suggest presence of compression fracture. Sciatic notch does show no evidence of increase of discomfort to suggest sciatica. The patient may have diffuse muscle spasm secondary to sudden shifts of electrolyte balance secondary to dialysis since these changes occurred shortly after dialysis, the patient's electrolytes appeared to be within normal range and inspection however and no phosphorus or magnesium levels were obtained at this time. The patient appears to have significant pain associated with these spasms, therefore, we would recommend treating the patient with initially Neurontin 100 mg p.o. t.i.d. and if not effective, consider using baclofen 10 mg b.i.d. dose, however as explained to the patient's , baclofen may be sedating. The patient is already on Restoril which a benzodiazepine-derivative medication, therefore would reserve baclofen for later consideration. Consider obtaining serum magnesium and phosphorus level and adjusting if abnormal. X-ray of the thoracic and lumbosacral spine to rule out occult compression fracture since the patient does have a history of osteoporosis. Recommend physical therapy to evaluate and treat the patient. The patient has severely decreased muscle mass and may be predisposed to compression neuropathy, therefore padding or adjustment of the bed cushioning would to provide additional relief for the patient. No evidence of seizures noted on examination. The movements do not suggest presence of underlying seizures. The patient was alert, oriented, and described having no loss of consciousness or alteration of consciousness during these episodes. We will re-evaluate the patient once he is started on the above-mentioned medications. Consultation Report [address] [place]. [address] NAME: APOLLO ELIZABETH : 48 STATUS : ADM Hong PAT#: [id number] AGE: 66 ADM/REG DATE : 11/10/16 MR#: [id number] REPORT SERV DATE: 11/11/16 DICTATED BY: JOVANNI VENTURA DATE: 11/11/16 REPORT STATUS : Draft TRANSCRIBED BY: AIDE DATE: 11/11/16 Thank you for allowing us to participate in this patient's care. [facility]/AIDE Jovanni Ventura MD / [id number] CC: Keisha Santos Jr, M.D.
--- NOTE | ~2016-11-10 | HP ---
History And Physical [facility] [address] [facility] [place]. [address] NAME: APOLLO ELIZABETH : 48 STATUS : ADM Hong PAT#: [id number] AGE: 66 ADM/REG DATE : 11/10/16 MR#: [id number] REPORT SERV DATE: 11/11/16 DICTATED BY: ALIVIA PENNY DATE: 11/11/16 REPORT STATUS : Draft TRANSCRIBED BY: MODL DATE: 11/11/16 DATE OF ADMISSION: 11/10/2016 CHIEF COMPLAINT: Muscular spasm with consequent back, neck, and leg discomfort. HISTORY OF PRESENT ILLNESS: This is a very kind and pleasant, 66-year-old, gentleman, who receives hemodialysis three days weekly at the [facility] in [place], utilizing his left upper arm AV graft. He initiated dialysis way back in 01/2006 and has been faithfully compliant to his treatments. He has substantial comorbidities of his ESRD and diabetes as described below. He was just recently admitted to the hospital with pleural effusion and underwent evacuation by thoracic surgery with pleurodesis and chest tube. He left on 10/27/2016 for discharge without his chest tube. He seemed to be doing okay but over the ensuing weeks, he was having occasional musculoskeletal spasm. He was not having any fevers. Last night, after dialysis, the muscular spasm was quite intense and he could not get comfortable. He was also having a lot of discomfort in the ambulance ride home. He seemed disoriented to his when she saw him last night and he could not get comfortable. She consequently called EMS and they brought him to the emergency department. Workup was nonrevealing and there was thought towards possibly discharging him, but he was still having a lot of discomfort, which was treated with narcotic agents and muscle relaxants. His insisted on admission for workup after it was noted that he had mild thoracic aortic aneurysm. PAST MEDICAL HISTORY: 1. Last admission for a pleural effusion status post thoracentesis with pleurodesis. 2. ESRD. 3. Diabetes type 2 with insulin dependence longstanding duration. 4. Peripheral vascular disease. 5. History of bilateral dxyok-hiq-cfej amputations. 6. Chronic hypotension. 7. Finger amputation. 8. Hypertension. 9. Hyperlipidemia. 10.Remote myocardial infarction. 11.Previous CABG. 12.Previous pacemaker placement. 13.History of atrial fibrillation. 14.Remote history of osteomyelitis but none recently. 15.Left upper arm AV graft, which may have originally been placed by Dr. Montoya. It still functions nicely for hemodialysis. 16.Remote tobacco abuse. ALLERGIES: SEROQUEL. HOME MEDICATIONS: From his discharge on 10/27/2016, he is supposed to be taking the followin. Vitamin C 1000 mg twice daily. History And Physical [address] [address] NAME: APOLLO ELIZABETH : 48 STATUS : ADM Hong PAT#: [id number] AGE: 66 ADM/REG DATE : 11/10/16 MR#: [id number] REPORT SERV DATE: 11/11/16 DICTATED BY: ALIVIA PENNY DATE: 11/11/16 REPORT STATUS : Draft TRANSCRIBED BY: AIDE DATE: 11/11/16 2. Lipitor 40 mg at bedtime. 3. Dulcolax 10 mg p.r.n. 4. Coreg 6.25 mg oral twice daily. 5. Sensipar 30 mg oral Sunday and Sunday. 6. Plavix 75 mg oral daily. 7. NovoLog insulin sliding scale. 8. Lantus insulin 35 units subcutaneously at bedtime. 9. B complex vitamin one tab daily. 10.ProAmatine 10 mg oral three times daily. 11.ProAir HFA as needed for shortness of breath. 12.PhosLo or calcium acetate two tablets oral three times daily with meals. 13.Probiotic one capsule oral daily. 14.Aspirin 325 mg oral on Sunday, , and Saturdays. 15.Restoril 30 mg oral at bedtime as needed for insomnia. 16.Tums 1000 mg oral daily for dyspepsia. 17.Nitroglycerin sublingually as needed for chest discomfort or shortness of breath. SOCIAL HISTORY: He lives with his , who is very supportive. He has two sons who live locally. 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 He quit smoking cigarettes back in 2003. He does not abuse alcohol or any illicit substances. FAMILY HISTORY: The patient's father lived to 78 years of age. He had complications of cardiovascular disease. His mother lived to be age 62. She had diabetes and cirrhosis and succumbed to complications from cirrhosis. REVIEW OF SYSTEMS: GENERAL: No fevers or chills. Appetite is stable. GI: Positive constipation for the past week. He denies abdominal pain. He was having some vomiting at dialysis yesterday but today at breakfast without any vomiting. CARDIOVASCULAR: Denies chest pain. RESPIRATORY: Denies cough. SKIN: No new rashes or regions of skin tenderness. MUSCULOSKELETAL: He indicates significant stiffness and pain in the region of neck and mid and lower back. He denies headache and denies any history of seizure disorder. All other review of systems was negative or noncontributory. PHYSICAL EXAMINATION: VITAL SIGNS: Temperature 96.6, heart rate 89, respiratory rate 18, blood pressure 143/73. GENERAL: He is a chronically ill-appearing, gentleman with pleasant affect who is alert and oriented to person, place, and time. Recognizes family and is in no distress. HEENT: Normocephalic, atraumatic. External ears and nose normal. Sinuses were nontender. Eye exam was conjunctivae free of any hemorrhages or exudates. Extraocular motor function is grossly intact. NECK: There is some stiffness to flexion both anteriorly and laterally. Mild stiffness to head turning. No palpable masses. Trachea midline. History And Physical [address] [address] NAME: APOLLO ELIZABETH : 48 STATUS : ADM Hong PAT#: [id number] AGE: 66 ADM/REG DATE : 11/10/16 MR#: [id number] REPORT SERV DATE: 11/11/16 DICTATED BY: ALIVIA PENNY DATE: 11/11/16 REPORT STATUS : Draft TRANSCRIBED BY: MODL DATE: 11/11/16 LYMPHATIC: Anterior-posterior neck, supraclavicular and abdominal regions were palpated and were found to be free of lymphadenopathy. RESPIRATORY: Efforts were nonlabored. Lung wheatley with minimal crackles on the right side but apparently fairly good aeration throughout. CARDIOVASCULAR: Regular rate and rhythm is appreciated without any gallop, rub, or murmur. No peripheral edema. No peripheral cyanosis. Bilateral BKA stumps free of cyanosis or any evidence of infarct. Those regions in the hands had expected warmth. No peripheral edema. ABDOMEN: Soft, but slightly full to palpation. No guarding. Auscultation reveals active bowel sounds throughout. No fluid wave to percussion. SKIN: No rashes, breakdown, or discoloration. He does have notable mild pallor but otherwise benign. STUDIES: Chest x-ray reviewed by me reveals pacemaker in previous sternotomy. Right middle lobe atelectasis status post recent pleurodesis. There is no new pleural effusion. CT of the thorax revealed a mild fusiform thoracic aneurysm 3.8 cm diameter. It is also noted to be enlarged pulmonary artery diameter. There is some atelectasis to the right lung base. CT of the brain revealed no acute change to suggest bleeding. This was a noncontrast study. Chemistry: Sodium 132, potassium 4.3, chloride 96, CO2 of 26, BUN 28, creatinine 3.94, calcium 9.5, phosphorus 4, magnesium level 2. CPK 57. CBC: White cell count 10.6, hemoglobin 12.8, hematocrit 39.8%, and platelets 299. White cell differential was benign. INR 1.2. No new cultures were sent. ASSESSMENT: 1. Altered mental status, which was transient on admission and may have been exacerbated by pain medications that he was given when he was in the emergency department. 2. Fusiform benign thoracic arch aortic aneurysm. It may deserve further surveillance monitoring in the future. 3. Acute recurrent back, neck, and bilateral leg spasm with no evidence of grand mal seizure. There is resultant tenderness of these regions because of the spasm. No obvious electrolyte cause that I can find on his lab work. Nothing currently on history or examination to suggest new seizures. Neurology is following. 4. Diabetes type 2. 5. End-stage renal disease. 6. Recent admission to the hospital for a pleural effusion, which was evacuated with subsequent pleurodesis. No evidence of recurrence on today's studies. PLAN: 1. Neurology has been consulted. They are assisting. We discussed the case and we agreed to a trial of Neurontin to relieve the episodic spastic episodes. She would like to avoid Relafen if possible as that drug could be more sedating. 2. Lortab as needed for musculoskeletal tenderness. 3. Continue Lantus with sliding scale NovoLog. 4. Continue current medications for renal osteodystrophy. 5. Hemodialysis on Sunday, Sunday, and Sunday. History And Physical [address] [place]. [address] NAME: APOLLO ELIZABETH : 48 STATUS : ADM Hong PAT#: [id number] AGE: 66 ADM/REG DATE : 11/10/16 MR#: [id number] REPORT SERV DATE: 11/11/16 DICTATED BY: ALIVIA PENNY DATE: 11/11/16 REPORT STATUS : Draft TRANSCRIBED BY: MODL DATE: 11/11/16 I anticipate two midnights worth admissions, particularly because he has already stayed one midnight. We are going to keep him at least overnight tonight and re-evaluate for possibly discharge tomorrow. BASIL/AIDE Alivia Penny M.D. / [id number] CC: Keisha Santos Jr, M.D.
--- NOTE | ~2016-11-10 | DS ---
Discharge Summary [facility] [address] [place]. [address] NAME: APOLLO ELIZABETH : [birth year] STATUS : DIS IN PAT#: [id number] AGE: 66 ADM/REG DATE : 11/10/16 MR#: [id number] REPORT SERV DATE: 12/11/16 DICTATED BY: JODY GALINDO JR DATE: 12/10/16 REPORT STATUS : Draft TRANSCRIBED BY: AIDE DATE: 12/10/16 Data Collection from hospitalization DISCHARGE DIAGNOSES: 1. Cervical spine disease. 2. End-stage renal disease. 3. Type 2 diabetes mellitus. 4. Anemia. 5. Arrhythmia. 6. Peripheral vascular disease. 7. Debility. 8. Hypertension. 9. Chronic hypotension. 10.History of remote myocardial infarction. 11.Hyperlipidemia. 12.Former tobacco use. CONSULTATIONS: Dr. María Elena Ventura, Dr. Armen lopez Junior, Dr. Rasheed Hunt, Dr. Rubio. PROCEDURES PERFORMED: 1. CT scan of the brain without contrast, 11/10/2016. 2. CT scan of the chest without contrast, 11/10/2016. 3. CT scan of the brain with contrast, 11/13/2016. 4. CT scan of the chest with contrast, 11/13/2016. 5. CT scan of the neck with contrast, 11/13/2016. 6. Renal ultrasound, 11/14/2016. 7. CT scan of the brain without contrast, 11/16/2016. 8. Cervical myelogram and CT scan of the cervical spine without contrast, 11/22/2016. MEDICATIONS: ProAir two puffs via inhaler every six hours as needed; Shannan Aspirin 325 mg daily; Lipitor 40 mg at bedtime; Nephro-Shaneka one tablet daily; 2.5 mg twice a day; PhosLo 1334 mg three times a day with meals; Tums 1000 mg as needed; Coreg 3.125 mg twice a day; Sensipar mg on Mondays, Wednesdays, and Fridays; Plavix 75 mg daily, NovoLog FlexPen as instructed; Lantus 15 units subcutaneously at bedtime; ProAmatine 5 mg three times a day; MiraLAX powder one packet daily; Zantac 300 mg daily; Restoril 15 mg at bedtime. He was instructed not to continue Levaquin. CONDITION AT DISCHARGE: Stable. DISPOSITION: The patient was discharged home, to be followed by home health care on a renal- diabetic diet with activities as instructed. He would follow up with Dr. Carmine Rubio three to four weeks following discharge and would follow up and resume outpatient dialysis as instructed. HOSPITAL COURSE: This is a 66-year-old man who undergoes hemodialysis three days a week utilizing a left upper arm AV graft. He initiated dialysis in 2005 and had been faithfully compliant to his treatment. He has substantial comorbidities of end-stage renal disease and Discharge Summary [address] [place]. [address] NAME: APOLLO ELIZABETH : [birth year] STATUS : DIS IN PAT#: [id number] AGE: 66 ADM/REG DATE : 11/10/16 MR#: [id number] REPORT SERV DATE: 12/11/16 DICTATED BY: JODY GALINDO JR DATE: 12/10/16 REPORT STATUS : Draft TRANSCRIBED BY: AIDE DATE: 12/10/16 diabetes. He had recently been admitted to the hospital with a pleural effusion and underwent evacuation by Thoracic Surgery with pleurodesis and chest tube placement. He left on 10/27/2016 without his chest tube. He seemed to be doing okay, but over the ensuing weeks, he began to have occasional musculoskeletal spasm. He was not having any fevers. On the night prior to this admission after dialysis, the muscular spasm was quite intense and he could not get comfortable. He said he had a lot of discomfort during the ambulance ride home. He seemed disoriented to his when she saw him the previous evening and he could not get comfortable. She consequently called EMS and they brought him to the emergency room. Workup was nonrevealing and it was sought to possibly discharge the patient, but he was still having a lot of discomfort which was treated with narcotic agents and muscle relaxants. His insisted on admission for workup and after it was noted that he had a mild thoracic aortic aneurysm. He was admitted to the hospital at this time for further evaluation and treatment. Upon admission, a CT scan of the brain without contrast was performed as well as a CT scan of the chest without contrast. No acute intracranial pathology was identified. The patient had mild fusiform aneurysmal change at the ascending thoracic aorta 3.8 cm in diameter near the ascending aorta and enlarged main pulmonary artery consistent with CT evidence of pulmonary arterial hypertension. There was a segmental atelectasis in the right lung base superimposed over a loculated small remaining pleural effusion in the right lung base. He had had a previous large right pleural effusion in September 2016. His altered mental status which had been transient on admission possibly was exacerbated by pain medication that he was given when he was in the emergency department. The patient has a fusiform benign thoracic arch aortic aneurysm. There was no evidence of grand mal seizure. He did have some tenderness in the back, neck, and bilateral legs because of spasms. There was no obvious electrolyte cause on lab work. The following day, he was seen by Dr. María Elena Ventura. White blood cell count was 10.6. He has had intermittent complaints of muscle spasm involving all four extremities. He also had lumbosacral spine pain which appeared to be a new complaint. On examination, the patient did not appear to have evidence for seizures. The patient did have asterixis. It was felt that he may have diffuse muscle spasm secondary to sudden shift of electrolyte balance secondary to dialysis since these changes occurred shortly after dialysis. The electrolytes appeared to be within normal limits. The patient would initially be treated with Neurontin. We would consider using baclofen. It was discussed with the patient, his that the baclofen may be sedating. He was already on Restoril. Baclofen would be reserved for later consideration. P.r.n. magnesium and phosphorus levels were going to be checked. He was seen by Dr. Carmine Rubio. The patient had undergone surgical intervention on 10/20/2016. He had had a coronary artery bypass grafting performed in 2009. The patient was to follow up with Dr. Rubio as an outpatient. The following day the baclofen was going to be restarted. On the 11/12/2016, he still had spasms and seemed to have good pain control. He was alert and cooperative. Over the next couple of days, he continued to complain of spasms in his arms and legs. He also complained of the headache. He had some nausea and decreased appetite. A CT scan of the brain with contrast was performed as well as a CT scan of the chest with contrast and a CT scan of the neck with contrast. No focal abnormal enhancement was seen on CT scan of the brain. The patient has stable small moderate right pleural effusion which may be partially loculated. There was trace left pleural fluid. There was similar bilateral lower lobe atelectasis with some additional atelectatic changes in the right upper lobe, right middle lobe, and lingula. Discharge Summary [facility] [id number] [place]. [address] NAME: APOLLO ELIZABETH : [birth year] STATUS : DIS IN PAT#: [id number] AGE: 66 ADM/REG DATE : 11/10/16 MR#: [id number] REPORT SERV DATE: 12/11/16 DICTATED BY: JODY GALINDO JR DATE: 12/10/16 REPORT STATUS : Draft TRANSCRIBED BY: AIDE DATE: 12/10/16 There were three discrete hyperdense nodules of the upper pole of the left kidney. There are atrophic kidneys bilaterally which contain multiple tiny renal cysts. There was also a peripherally calcified nodule at the upper pole of the left kidney which likely represents a complex cyst. There was no evidence of cervical mass or adenopathy. Acute on chronic sinusitis was identified in the maxillary sinuses. On 11/14/2016, a renal ultrasound was performed. He underwent an extra hemodialysis therapy because of IV contrast exposure. MiraLAX was continued for constipation. Senokot was going to be given. Baclofen was increased. He was evaluated by Physical Therapy. Neurontin was continued. He was seen by Dr. Armen Lopez Junior, regarding left renal nodules. The patient has hyperdense lesions in the left kidney suspicious for neoplasm. We would continue to observe these lesions for size, and as long as they remain T1a lesions observation may be the best option. The risk of surgical removal from a partial nephrectomy standpoint as well from a radical nephrectomy standpoint was discussed. The next day, he did have a transient altered mental status. He still had significant shoulder muscle spasm and dystonia. His baclofen was continued. A trial of Tegretol was begun. On 11/16/2016, he was lethargic and not verbal. Baclofen was decreased. Neurontin and Tegretol were stopped. CT scan of the brain without contrast was performed. Plavix was held. He still has some constipation. White blood cell count had increased to 17.1. Occupational Therapy evaluated the patient. On 11/17/2016, he was still drowsy. Hemodialysis therapy was performed. Mental status had mildly improved. We discussed with the patient that he may not be strong enough to go home. He was worried about being too much of a burden on his . He remained a full code for now. The next day, his T-max was 98.1. Baclofen was continued. His encephalopathy did improve some. Plans are being made for a CT myelogram to be performed. He still has muscle spasms, and on 11/21/2016, the patient was seen by Dr. Rasheed Hunt regarding ventricular arrhythmia. The patient denied any chest pain or palpitations. He did notice to have some ventricular beat. He had been here about a month prior to this admission and was evaluated in for essentially the same pain he was felt to be stable and no new changes were made. He does have a defibrillator. We reviewed multiple telemetry strips. On the floor, he did not appear to have any significant ventricular arrhythmia. There were telemetry strips, but they were very small from dialysis. There appeared to be some wide-complex beats. The differential would be ventricular pacing versus ventricular tachycardia. It was felt most likely to be ventricular pacing. A [employer] business services sales representative was going to interrogate the AICD. It was doubted that he was having significant ventricular tachycardia. If he was having any, most likely, we would discontinue his carvedilol and observe him. Potassium, obviously, will need to be corrected just a little bit to probably help prevent ventricular arrhythmia. If this was ventricular pacing, then certainly no other intervention would need to be performed from a cardiac standpoint. His device was interrogated. He still needed to work on transfers. On the 11/22/2016, he underwent cervical myelogram and CT scan of the cervical spine without contrast. He has high-grade spondylotic changes with at least mild compression of the cord at C3-C4 and C4-C5. There was more significant compression at C5- C6, C6-C7, and C7-T1. There was a relative high-grade, but not complete block of the contrast column at C7-T1. On 11/23/2016, the patient was refusing to discuss rehabilitation. He underwent diabetes Discharge Summary [facility] [address] [place]. [address] NAME: APOLLO ELIZABETH DOB: [birth year] STATUS : DIS IN PAT#: [id number] AGE: 66 ADM/REG DATE : 11/10/16 MR#: [id number] REPORT SERV DATE: 12/11/16 DICTATED BY: JODY GALINDO JR DATE: 12/10/16 REPORT STATUS : Draft TRANSCRIBED BY: AIDE DATE: 12/10/16 education. Hemodialysis therapy continued. On 11/25/2016, he had no new complaint. White count was 9.4. Potassium level was 6.6. Over the next couple of days, he had no new complaints. Discharge planning was performed. On 11/27/2016, his lungs were clear. He was in no acute distress. Discharge instructions were given. Due to his improved and stable condition, he was discharged home, to be followed by home health care with the above-stated instructions. Information collected by: Yolande Jordan I submit the above information as my discharge summary. COLIN/AIDE Jody Galindo Jr, M.D. / [id number] CC: Keisha Santos Jr, M.D. James Zellner, M.D. Michael C Allan, M.D. William Young Jr., M.D.
--- NOTE | ~2016-11-10 | CN ---
Consultation Report [facility] [address] [place]. [address] NAME: APOLLO THAO : [birth year] STATUS : ADM Hong PAT#: [id number] AGE: 66 ADM/REG DATE : 11/10/16 MR#: [id number] REPORT SERV DATE: 11/14/16 DICTATED BY: ARMEN LOPEZ JR. DATE: 11/14/16 REPORT STATUS : Draft TRANSCRIBED BY: MODL DATE: 11/14/16 CONSULT NOTE DATE OF CONSULTATION: 11/14/2016 WOOD LAST MAKER: Armen Lopez M.D. CHIEF COMPLAINT: Left renal nodules. HISTORY OF PRESENT ILLNESS: Mr. Thao is a 66-year-old gentleman, who is on chronic hemodialysis and Dr. Penny has been taking care of him for quite some time. He had a recent hospitalization with pleural effusion two weeks ago. He had a pleurocentesis according to the patient. He then presented back to the emergency room on 11/10/2016, with muscular spasm, back, neck, and leg pain. He was admitted at that time. A CT scan of the chest was performed and the kidneys were reviewed on this CT scan. He had several small cysts bilaterally along with some more hyperdense nodules in the upper pole of the left kidney which are isodense with the kidney and possibly represent small neoplasms, potentially malignant. I was consulted to evaluate and treat these renal nodules. PAST MEDICAL HISTORY: Significant for the above stated pleural effusion with thoracentesis and pleurodesis; end-stage renal disease; diabetes type 2; peripheral vascular disease; bilateral [id number] amputation; chronic hypotension; amputation of 1 finger; hypertension; hyperlipidemia; myocardial infarction; coronary artery bypass grafting; pacemaker placement; atrial fibrillation; osteomyelitis; and left upper arm AV graft for hemodialysis. ALLERGIES: SEROQUEL. HOME MEDICATIONS: Were reviewed including ProAir; aspirin; Lipitor; Nephro-Shaneka tablet; baclofen; calcium; carvedilol; Sensipar; Plavix; NovoLog; Lantus insulin; Levaquin; ProAmatine; Zantac; and Restoril. SOCIAL HISTORY: He lives with his who is very supportive of him. He has 2 sons who live in [place]. He is retired. He quit smoking in 2003. He does not abuse alcohol or use illicit drugs. FAMILY HISTORY: Cardiovascular disease and diabetes and cirrhosis of the liver. REVIEW OF SYSTEMS: A 10 system review was performed. Pertinent negatives include no fever. No chills. No nausea. No vomiting. No constipation. No diarrhea. No lower urinary tract symptoms. PHYSICAL EXAMINATION: GENERAL: He is a well-nourished, well-developed male, in no acute distress. Afebrile. Consultation Report [address] [place]. [address] NAME: APOLLO THAO : [birth year] STATUS : ADM Hong PAT#: [id number] AGE: 66 ADM/REG DATE : 11/10/16 MR#: [id number] REPORT SERV DATE: 11/14/16 DICTATED BY: ARMEN LOPEZ JR. DATE: 11/14/16 REPORT STATUS : Draft TRANSCRIBED BY: AIDE DATE: 11/14/16 VITAL SIGNS: Stable. HEENT: Normocephalic and atraumatic. NECK: Symmetric. CHEST: Clear to auscultation bilaterally. HEART: Regular rate and rhythm. ABDOMEN: Soft, nontender, nondistended without palpable hernias. GENITOURINARY: Exam is deferred today. LABORATORY DATA: White blood cell count of 8.3, hemoglobin 12.2, and platelet count of 324. Electrolytes are within normal limits. BUN of 55, creatinine 6.[address] scan, I reviewed the CT scan which reveals several bilateral renal cysts as discussed above. On the left kidney, there are 3 nodules 1 measuring 9 mm medially; 1 measuring 4 mm posteriorly; and 1 measuring 4 mm anteriorly. They are isodense as mentioned above, suspicious for small solid renal neoplasm. Also a calcified nodule in the upper pole of the left kidney measuring 7 mm and a small nonobstructing stone in the mid to upper left kidney. ASSESSMENT: Hyperdense lesions in the left kidney suspicious for neoplasm. RECOMMENDATIONS: I discussed the options of therapy and workup with the patient and family including a renal ultrasound, MRI. We could continue to observe these lesions for size as long as they remain T1a lesions, observation may be his best option. We discussed the risk of surgical removal from a partial nephrectomy standpoint as well as from a radical nephrectomy standpoint. I think this is a multifactorial case and should be decided amongst his physicians. I will discuss this case with Dr. Penny and we will decide which direction to go next. While he is in the hospital, I will plan to get a renal ultrasound to evaluate these lesions a little further with a color flow examination. NASH/AIDE Armen Lopez Jr., M.D. / [id number] CC: Keisha Santos Jr, M.D.
[~2016-11-10 21:31] MED LIST changes: +BISR PR; +COREG3 PO; +MIRALAX POWDER1 PKT PO; +MUCINEX DM PO; +NITROQUICK0.4 MG PO; +PHOSLO PO; +PROAMATINE10 MG PO; +RESTORIL30 MG PO; +VITC500 PO
[2016-11-10 22:28] LABS: BASOPHILS 0.4 %; BASOPHILS ABSOLUTE 0.04 10/3/uL (0.0-0.16); EOSINOPHILS 0.8 %; EOSINOPHILS ABSOLUTE 0.08 10/3/uL (0.0-0.53); ER CBC TAT 0 Hrs 13 Mins; HEMATOCRIT 39.8 % (40.0-51.0); HEMOGLOBIN 12.8 g/dL (13.6-17.8); IMMATURE GRANULOCYTES 0.2 %; IMMATURE GRANULOCYTES ABSOLUTE 0.02 10/3/uL (0.0-0.11); LYMPHOCYTES 12.6 %; LYMPHOCYTES ABSOLUTE 1.34 10/3/uL (0.67-4.30); MANUAL DIFF NO %; MEAN CORPUS HGB CONC 32.2 g/dL (32.0-36.0); MEAN CORPUSCULAR VOLUME 87.1 fL (80-100); MEAN PLATELET VOLUME 10.4 fL (9.2-13.0); MONOCYTES 17.9 %; NEUTROPHILS 68.1 %; NEUTROPHILS ABSOLUTE 7.22 10/3/uL (2.02-8.40); PLATELET COUNT 299 10/3/uL (150-400); RBC DISTRIBUTION WIDTH 18.7 % (12.0-16.0); RED CELL COUNT 4.57 10/6/uL (4.7-6.1); WHITE BLOOD CELLS 10.6 10/3/uL (4.5-10.5)
[2016-11-10 22:32] LABS: INTERNATIONAL NORMAL RATI 1.2 UNITS (-); PARTIAL THROMBO TIME 41.3 SEC (22.5-37.2); PROTIME (NOT ORD) 15.1 SEC (12.0-14.5)
[2016-11-10 22:48] LABS: CHLORIDE, SERUM 96 MMOL/L (96-112); GLUCOSE, SERUM 122 MG/DL (60-99); SODIUM, SERUM 137 MMOL/L (135-148)
[2016-11-10 22:50] LABS: BUN (BLOOD UREA NITROGEN) 21 MG/DL (6-23); CALCIUM, SERUM 9.7 MG/DL (8.5-10.4); CO2 (CARBON DIOXIDE) 34 MMOL/L (24-34); CREATININE 3.58 MG/DL (0.70-1.30); GFR AFRICAN AMERICAN 19 ML/MIN (>=60); GFR NON AFRICAN AMERICAN 17 ML/MIN (>=60); POTASSIUM, SERUM 4.8 MMOL/L (3.5-5.3)
[2016-11-10 22:51] LABS: CHEST PAIN PROFILE TAT 0 Hrs 36 Mins; TROPONIN I 0.17 NG/ML (<0.05)
[2016-11-11] MEDS ORDERED: LIOR10 PO (03:39)
[2016-11-11] MEDS ORDERED: LEVAQUIN5T PO (03:40)
[2016-11-11] MEDS ORDERED: NEPHRO-VITE PO (03:41)
[2016-11-11] MEDS ORDERED: SENSIPAR30 M1 PO (03:41)
[2016-11-11] MEDS ORDERED: RESTORIL30 MG PO (03:41)
[2016-11-11] MEDS ORDERED: ASABAYER PO (03:41)
[2016-11-11] MEDS ORDERED: TUMSROLL PO (03:42)
[2016-11-11] MEDS ORDERED: COREG3 PO (03:42)
[2016-11-11] MEDS ORDERED: LIPITOR40 PO (03:43)
[2016-11-11] MEDS ORDERED: PROAMAT5 PO (03:43)
[2016-11-11] MEDS ORDERED: PROAIR HFA INH (03:43)
[2016-11-11] MEDS ORDERED: PHOSLO PO (03:44)
[2016-11-11] MEDS ORDERED: ZANTAC300 MG PO (03:44)
[2016-11-11] MEDS ORDERED: PLAVIX PO (03:44)
[2016-11-11] MEDS ORDERED: NOVOPEN SC (03:45)
[2016-11-11] MEDS ORDERED: LANTUSCART SC (03:45)
[2016-11-11 05:25] LABS: ALBUMIN 2.6 G/DL (3.5-5.0); CALCIUM, SERUM 9.5 MG/DL (8.5-10.4); CHLORIDE, SERUM 96 MMOL/L (96-112); CPK 57 U/L (0-200); CREATININE 3.94 MG/DL (0.70-1.30); GFR AFRICAN AMERICAN 17 ML/MIN (>=60); GFR NON AFRICAN AMERICAN 15 ML/MIN (>=60); POTASSIUM, SERUM 4.3 MMOL/L (3.5-5.3); SODIUM, SERUM 133 MMOL/L (135-148)
[2016-11-11 05:26] LABS: BUN (BLOOD UREA NITROGEN) 28 MG/DL (6-23); CK-MB 3.7 NG/ML; CO2 (CARBON DIOXIDE) 26 MMOL/L (24-34); GLUCOSE, SERUM 192 MG/DL (60-99); TROPONIN I 0.16 NG/ML (<0.05)
[2016-11-11 15:45] LABS: CPK 46 U/L (0-200)
[2016-11-11 15:46] LABS: CK-MB 4.5 NG/ML
[2016-11-11 15:47] LABS: TROPONIN I 0.14 NG/ML (<0.05)
[2016-11-13 14:30] LABS: BASOPHILS 0.3 %; BASOPHILS ABSOLUTE 0.02 10/3/uL (0.0-0.16); EOSINOPHILS 0.4 %; EOSINOPHILS ABSOLUTE 0.03 10/3/uL (0.0-0.53); HEMATOCRIT 37.9 % (40.0-51.0); HEMOGLOBIN 12.2 g/dL (13.6-17.8); IMMATURE GRANULOCYTES 0.3 %; IMMATURE GRANULOCYTES ABSOLUTE 0.02 10/3/uL (0.0-0.11); LYMPHOCYTES 17.3 %; LYMPHOCYTES ABSOLUTE 1.38 10/3/uL (0.67-4.30); MEAN CORPUS HGB CONC 32.2 g/dL (32.0-36.0); MEAN CORPUSCULAR HEMOGLOB 27.9 pg (26.0-34.0); MEAN CORPUSCULAR VOLUME 86.5 fL (80-100); MEAN PLATELET VOLUME 10.8 fL (9.2-13.0); MONOCYTES 13.2 %; MONOCYTES ABSOLUTE 1.05 10/3/uL (0.21-1.20); NEUTROPHILS 68.5 %; NEUTROPHILS ABSOLUTE 5.46 10/3/uL (2.02-8.40); PLATELET COUNT 340 10/3/uL (150-400); RBC DISTRIBUTION WIDTH 17.9 % (12.0-16.0); RED CELL COUNT 4.38 10/6/uL (4.7-6.1)
[2016-11-13 14:32] LABS: ALBUMIN 2.5 G/DL (3.5-5.0); CHLORIDE, SERUM 93 MMOL/L (96-112); CO2 (CARBON DIOXIDE) 27 MMOL/L (24-34); GFR AFRICAN AMERICAN 7 ML/MIN (>=60); GFR NON AFRICAN AMERICAN 6 ML/MIN (>=60); GLUCOSE, SERUM 222 MG/DL (60-99); MANUAL DIFF NO %; PHOSPHORUS, SERUM 3.9 MG/DL (2.5-4.5); SODIUM, SERUM 132 MMOL/L (135-148)
[2016-11-13 14:33] LABS: BUN (BLOOD UREA NITROGEN) 89 MG/DL (6-23); CREATININE 7.94 MG/DL (0.70-1.30)
[2016-11-14 11:02] LABS: BASOPHILS 0.4 %; BASOPHILS ABSOLUTE 0.03 10/3/uL (0.0-0.16); EOSINOPHILS 0.8 %; EOSINOPHILS ABSOLUTE 0.07 10/3/uL (0.0-0.53); HEMATOCRIT 38.6 % (40.0-51.0); HEMOGLOBIN 12.2 g/dL (13.6-17.8); IMMATURE GRANULOCYTES 0.1 %; IMMATURE GRANULOCYTES ABSOLUTE 0.01 10/3/uL (0.0-0.11); LYMPHOCYTES 13.1 %; LYMPHOCYTES ABSOLUTE 1.08 10/3/uL (0.67-4.30); MEAN CORPUS HGB CONC 31.6 g/dL (32.0-36.0); MEAN CORPUSCULAR HEMOGLOB 27.5 pg (26.0-34.0); MEAN CORPUSCULAR VOLUME 87.1 fL (80-100); MEAN PLATELET VOLUME 10.4 fL (9.2-13.0); MONOCYTES 14.9 %; MONOCYTES ABSOLUTE 1.23 10/3/uL (0.21-1.20); NEUTROPHILS 70.7 %; NEUTROPHILS ABSOLUTE 5.85 10/3/uL (2.02-8.40); PLATELET COUNT 324 10/3/uL (150-400); RBC DISTRIBUTION WIDTH 18.2 % (12.0-16.0); RED CELL COUNT 4.43 10/6/uL (4.7-6.1); WHITE BLOOD CELLS 8.3 10/3/uL (4.5-10.5)
[2016-11-14 11:03] LABS: MANUAL DIFF NO %
[2016-11-14 11:13] LABS: ALBUMIN 2.6 G/DL (3.5-5.0); CALCIUM, SERUM 9.2 MG/DL (8.5-10.4); CHLORIDE, SERUM 99 MMOL/L (96-112); CO2 (CARBON DIOXIDE) 30 MMOL/L (24-34); GFR AFRICAN AMERICAN 10 ML/MIN (>=60); GFR NON AFRICAN AMERICAN 9 ML/MIN (>=60); GLUCOSE, SERUM 206 MG/DL (60-99); PHOSPHORUS, SERUM 3.1 MG/DL (2.5-4.5); POTASSIUM, SERUM 4.8 MMOL/L (3.5-5.3); SODIUM, SERUM 137 MMOL/L (135-148)
[2016-11-14 11:14] LABS: BUN (BLOOD UREA NITROGEN) 55 MG/DL (6-23); CREATININE 6.01 MG/DL (0.70-1.30)
[2016-11-15 12:49] LABS: BASOPHILS 0.2 %; BASOPHILS ABSOLUTE 0.04 10/3/uL (0.0-0.16); EOSINOPHILS 0.9 %; EOSINOPHILS ABSOLUTE 0.15 10/3/uL (0.0-0.53); HEMATOCRIT 38.4 % (40.0-51.0); HEMOGLOBIN 12.3 g/dL (13.6-17.8); IMMATURE GRANULOCYTES 0.4 %; IMMATURE GRANULOCYTES ABSOLUTE 0.06 10/3/uL (0.0-0.11); LYMPHOCYTES 10.6 %; LYMPHOCYTES ABSOLUTE 1.82 10/3/uL (0.67-4.30); MANUAL DIFF NO %; MEAN CORPUSCULAR HEMOGLOB 27.3 pg (26.0-34.0); MEAN CORPUSCULAR VOLUME 85.3 fL (80-100); MEAN PLATELET VOLUME 10.3 fL (9.2-13.0); MONOCYTES 12.2 %; MONOCYTES ABSOLUTE 2.09 10/3/uL (0.21-1.20); NEUTROPHILS 75.7 %; NEUTROPHILS ABSOLUTE 12.93 10/3/uL (2.02-8.40); PLATELET COUNT 331 10/3/uL (150-400); WHITE BLOOD CELLS 17.1 10/3/uL (4.5-10.5)
[2016-11-15 13:02] LABS: ALBUMIN 2.6 G/DL (3.5-5.0); BUN (BLOOD UREA NITROGEN) 58 MG/DL (6-23); CALCIUM, SERUM 9.5 MG/DL (8.5-10.4); CHLORIDE, SERUM 100 MMOL/L (96-112); CO2 (CARBON DIOXIDE) 27 MMOL/L (24-34); CREATININE 5.87 MG/DL (0.70-1.30); GFR AFRICAN AMERICAN 11 ML/MIN (>=60); GFR NON AFRICAN AMERICAN 9 ML/MIN (>=60); SODIUM, SERUM 136 MMOL/L (135-148)
[2016-11-15 13:03] LABS: GLUCOSE, SERUM 157 MG/DL (60-99); PHOSPHORUS, SERUM 2.1 MG/DL (2.5-4.5)
[2016-11-17 08:49] LABS: BASOPHILS 0.2 %; BASOPHILS ABSOLUTE 0.02 10/3/uL (0.0-0.16); EOSINOPHILS 1.4 %; EOSINOPHILS ABSOLUTE 0.16 10/3/uL (0.0-0.53); HEMATOCRIT 38.9 % (40.0-51.0); HEMOGLOBIN 12.6 g/dL (13.6-17.8); IMMATURE GRANULOCYTES 0.4 %; IMMATURE GRANULOCYTES ABSOLUTE 0.04 10/3/uL (0.0-0.11); LYMPHOCYTES 13.6 %; LYMPHOCYTES ABSOLUTE 1.52 10/3/uL (0.67-4.30); MEAN CORPUS HGB CONC 32.4 g/dL (32.0-36.0); MEAN CORPUSCULAR HEMOGLOB 27.8 pg (26.0-34.0); MEAN CORPUSCULAR VOLUME 85.7 fL (80-100); MONOCYTES ABSOLUTE 1.68 10/3/uL (0.21-1.20); NEUTROPHILS 69.4 %; NEUTROPHILS ABSOLUTE 7.76 10/3/uL (2.02-8.40); PLATELET COUNT 326 10/3/uL (150-400); RBC DISTRIBUTION WIDTH 18.4 % (12.0-16.0); RED CELL COUNT 4.54 10/6/uL (4.7-6.1); WHITE BLOOD CELLS 11.2 10/3/uL (4.5-10.5)
[2016-11-17 08:50] LABS: MANUAL DIFF NO %
[2016-11-17 08:56] LABS: ALBUMIN 2.6 G/DL (3.5-5.0); BUN (BLOOD UREA NITROGEN) 56 MG/DL (6-23); C-REACTIVE PROTEIN 79.1 MG/L (<8.0); CALCIUM, SERUM 9.8 MG/DL (8.5-10.4); CHLORIDE, SERUM 99 MMOL/L (96-112); CO2 (CARBON DIOXIDE) 27 MMOL/L (24-34); CREATININE 6.36 MG/DL (0.70-1.30); GFR AFRICAN AMERICAN 10 ML/MIN (>=60); GFR NON AFRICAN AMERICAN 8 ML/MIN (>=60); SODIUM, SERUM 134 MMOL/L (135-148)
[2016-11-17 08:59] LABS: GLUCOSE, SERUM 167 MG/DL (60-99); PHOSPHORUS, SERUM 3.3 MG/DL (2.5-4.5)
[2016-11-17 09:17] LABS: PROCALCITONIN 3.99 ng/mL (<0.5)
[2016-11-18 07:29] LABS: BASOPHILS 0.4 %; BASOPHILS ABSOLUTE 0.04 10/3/uL (0.0-0.16); EOSINOPHILS 1.2 %; EOSINOPHILS ABSOLUTE 0.11 10/3/uL (0.0-0.53); HEMATOCRIT 39.4 % (40.0-51.0); HEMOGLOBIN 12.4 g/dL (13.6-17.8); IMMATURE GRANULOCYTES 0.2 %; IMMATURE GRANULOCYTES ABSOLUTE 0.02 10/3/uL (0.0-0.11); LYMPHOCYTES 16.3 %; LYMPHOCYTES ABSOLUTE 1.52 10/3/uL (0.67-4.30); MEAN CORPUS HGB CONC 31.5 g/dL (32.0-36.0); MEAN CORPUSCULAR HEMOGLOB 27.7 pg (26.0-34.0); MEAN CORPUSCULAR VOLUME 87.9 fL (80-100); MEAN PLATELET VOLUME 10.2 fL (9.2-13.0); MONOCYTES ABSOLUTE 1.21 10/3/uL (0.21-1.20); NEUTROPHILS 68.9 %; NEUTROPHILS ABSOLUTE 6.44 10/3/uL (2.02-8.40); PLATELET COUNT 298 10/3/uL (150-400); RBC DISTRIBUTION WIDTH 18.9 % (12.0-16.0); RED CELL COUNT 4.48 10/6/uL (4.7-6.1); WHITE BLOOD CELLS 9.3 10/3/uL (4.5-10.5)
[2016-11-18 07:31] LABS: MANUAL DIFF NO %
[2016-11-18 07:42] LABS: BUN (BLOOD UREA NITROGEN) 38 MG/DL (6-23); CALCIUM, SERUM 9.9 MG/DL (8.5-10.4); CHLORIDE, SERUM 101 MMOL/L (96-112); CO2 (CARBON DIOXIDE) 31 MMOL/L (24-34); CREATININE 5.18 MG/DL (0.70-1.30); GFR AFRICAN AMERICAN 12 ML/MIN (>=60); GFR NON AFRICAN AMERICAN 11 ML/MIN (>=60); GLUCOSE, SERUM 214 MG/DL (60-99); PHOSPHORUS, SERUM 2.3 MG/DL (2.5-4.5); POTASSIUM, SERUM 4.9 MMOL/L (3.5-5.3); SODIUM, SERUM 136 MMOL/L (135-148)
[2016-11-20 14:07] LABS: BASOPHILS 0.3 %; BASOPHILS ABSOLUTE 0.03 10/3/uL (0.0-0.16); EOSINOPHILS ABSOLUTE 0.09 10/3/uL (0.0-0.53); HEMATOCRIT 37.6 % (40.0-51.0); HEMOGLOBIN 12.1 g/dL (13.6-17.8); IMMATURE GRANULOCYTES 0.2 %; IMMATURE GRANULOCYTES ABSOLUTE 0.02 10/3/uL (0.0-0.11); LYMPHOCYTES 22.3 %; LYMPHOCYTES ABSOLUTE 2.07 10/3/uL (0.67-4.30); MEAN CORPUS HGB CONC 32.2 g/dL (32.0-36.0); MEAN CORPUSCULAR HEMOGLOB 27.6 pg (26.0-34.0); MEAN CORPUSCULAR VOLUME 85.8 fL (80-100); MEAN PLATELET VOLUME 10.6 fL (9.2-13.0); MONOCYTES 7.3 %; MONOCYTES ABSOLUTE 0.68 10/3/uL (0.21-1.20); NEUTROPHILS 68.9 %; NEUTROPHILS ABSOLUTE 6.41 10/3/uL (2.02-8.40); PLATELET COUNT 288 10/3/uL (150-400); RBC DISTRIBUTION WIDTH 18.3 % (12.0-16.0); RED CELL COUNT 4.38 10/6/uL (4.7-6.1); WHITE BLOOD CELLS 9.3 10/3/uL (4.5-10.5)
[2016-11-20 14:08] LABS: MANUAL DIFF NO %
[2016-11-20 14:28] LABS: ALBUMIN 2.8 G/DL (3.5-5.0); CALCIUM, SERUM 9.7 MG/DL (8.5-10.4); CHLORIDE, SERUM 98 MMOL/L (96-112); CO2 (CARBON DIOXIDE) 27 MMOL/L (24-34); GLUCOSE, SERUM 176 MG/DL (60-99)
[2016-11-20 14:29] LABS: BUN (BLOOD UREA NITROGEN) 79 MG/DL (6-23); CREATININE 8.19 MG/DL (0.70-1.30); GFR AFRICAN AMERICAN 7 ML/MIN (>=60); GFR NON AFRICAN AMERICAN 6 ML/MIN (>=60); PHOSPHORUS, SERUM 1.6 MG/DL (2.5-4.5); POTASSIUM, SERUM 6.1 MMOL/L (3.5-5.3); SODIUM, SERUM 128 MMOL/L (135-148)
[2016-11-22 12:47] LABS: BASOPHILS 0.4 %; BASOPHILS ABSOLUTE 0.05 10/3/uL (0.0-0.16); EOSINOPHILS ABSOLUTE 0.11 10/3/uL (0.0-0.53); HEMATOCRIT 38.4 % (40.0-51.0); HEMOGLOBIN 12.2 g/dL (13.6-17.8); IMMATURE GRANULOCYTES 0.3 %; IMMATURE GRANULOCYTES ABSOLUTE 0.03 10/3/uL (0.0-0.11); LYMPHOCYTES 13.5 %; LYMPHOCYTES ABSOLUTE 1.51 10/3/uL (0.67-4.30); MEAN CORPUS HGB CONC 31.8 g/dL (32.0-36.0); MEAN CORPUSCULAR HEMOGLOB 27.6 pg (26.0-34.0); MEAN CORPUSCULAR VOLUME 86.9 fL (80-100); MEAN PLATELET VOLUME 10.5 fL (9.2-13.0); MONOCYTES 7.6 %; MONOCYTES ABSOLUTE 0.85 10/3/uL (0.21-1.20); NEUTROPHILS 77.2 %; PLATELET COUNT 268 10/3/uL (150-400); RBC DISTRIBUTION WIDTH 18.3 % (12.0-16.0); RED CELL COUNT 4.42 10/6/uL (4.7-6.1); WHITE BLOOD CELLS 11.2 10/3/uL (4.5-10.5)
[2016-11-22 12:49] LABS: MANUAL DIFF NO %
[2016-11-22 13:01] LABS: ALBUMIN 2.7 G/DL (3.5-5.0); CALCIUM, SERUM 9.5 MG/DL (8.5-10.4); CHLORIDE, SERUM 101 MMOL/L (96-112); CO2 (CARBON DIOXIDE) 24 MMOL/L (24-34); SODIUM, SERUM 133 MMOL/L (135-148)
[2016-11-22 13:15] LABS: BUN (BLOOD UREA NITROGEN) 62 MG/DL (6-23); CREATININE 7.46 MG/DL (0.70-1.30); GFR AFRICAN AMERICAN 8 ML/MIN (>=60); GFR NON AFRICAN AMERICAN 7 ML/MIN (>=60); GLUCOSE, SERUM 213 MG/DL (60-99); PHOSPHORUS, SERUM 2.3 MG/DL (2.5-4.5); POTASSIUM, SERUM 6.9 MMOL/L (3.5-5.3)
[2016-11-22 17:40] LABS: ALBUMIN 2.9 G/DL (3.5-5.0); CALCIUM, SERUM 9.3 MG/DL (8.5-10.4); CHLORIDE, SERUM 104 MMOL/L (96-112); GLUCOSE, SERUM 237 MG/DL (60-99); SODIUM, SERUM 136 MMOL/L (135-148)
[2016-11-22 17:45] LABS: BUN (BLOOD UREA NITROGEN) 17 MG/DL (6-23); CO2 (CARBON DIOXIDE) 30 MMOL/L (24-34); CREATININE 2.66 MG/DL (0.70-1.30); GFR AFRICAN AMERICAN 28 ML/MIN (>=60); GFR NON AFRICAN AMERICAN 24 ML/MIN (>=60); PHOSPHORUS, SERUM 1.2 MG/DL (2.5-4.5); POTASSIUM, SERUM 3.7 MMOL/L (3.5-5.3)
[2016-11-23 08:59] LABS: ALBUMIN 2.8 G/DL (3.5-5.0); BUN (BLOOD UREA NITROGEN) 32 MG/DL (6-23); CALCIUM, SERUM 9.3 MG/DL (8.5-10.4); CHLORIDE, SERUM 105 MMOL/L (96-112); CO2 (CARBON DIOXIDE) 29 MMOL/L (24-34); GFR AFRICAN AMERICAN 14 ML/MIN (>=60); GFR NON AFRICAN AMERICAN 12 ML/MIN (>=60); GLUCOSE, SERUM 142 MG/DL (60-99); POTASSIUM, SERUM 5.6 MMOL/L (3.5-5.3); SODIUM, SERUM 140 MMOL/L (135-148)
[2016-11-24 15:35] LABS: BASOPHILS 0.5 %; BASOPHILS ABSOLUTE 0.05 10/3/uL (0.0-0.16); EOSINOPHILS 1.8 %; EOSINOPHILS ABSOLUTE 0.17 10/3/uL (0.0-0.53); HEMATOCRIT 35.9 % (40.0-51.0); HEMOGLOBIN 11.4 g/dL (13.6-17.8); IMMATURE GRANULOCYTES 0.4 %; IMMATURE GRANULOCYTES ABSOLUTE 0.04 10/3/uL (0.0-0.11); LYMPHOCYTES 18.1 %; MANUAL DIFF NO %; MEAN CORPUS HGB CONC 31.8 g/dL (32.0-36.0); MEAN CORPUSCULAR HEMOGLOB 27.7 pg (26.0-34.0); MEAN CORPUSCULAR VOLUME 87.3 fL (80-100); MEAN PLATELET VOLUME 10.8 fL (9.2-13.0); MONOCYTES 10.6 %; NEUTROPHILS 68.6 %; NEUTROPHILS ABSOLUTE 6.45 10/3/uL (2.02-8.40); PLATELET COUNT 252 10/3/uL (150-400); RBC DISTRIBUTION WIDTH 18.8 % (12.0-16.0); RED CELL COUNT 4.11 10/6/uL (4.7-6.1); WHITE BLOOD CELLS 9.4 10/3/uL (4.5-10.5)
[2016-11-24 15:52] LABS: ALBUMIN 2.7 G/DL (3.5-5.0); BUN (BLOOD UREA NITROGEN) 60 MG/DL (6-23); CALCIUM, SERUM 9.1 MG/DL (8.5-10.4); CHLORIDE, SERUM 99 MMOL/L (96-112); CO2 (CARBON DIOXIDE) 27 MMOL/L (24-34); CREATININE 6.52 MG/DL (0.70-1.30); GFR AFRICAN AMERICAN 9 ML/MIN (>=60); GFR NON AFRICAN AMERICAN 8 ML/MIN (>=60); GLUCOSE, SERUM 227 MG/DL (60-99); PHOSPHORUS, SERUM 1.7 MG/DL (2.5-4.5); POTASSIUM, SERUM 6.6 MMOL/L (3.5-5.3); SODIUM, SERUM 132 MMOL/L (135-148)
[2016-11-27 08:24] LABS: BASOPHILS 0.6 %; BASOPHILS ABSOLUTE 0.05 10/3/uL (0.0-0.16); EOSINOPHILS 2.2 %; HEMATOCRIT 34.6 % (40.0-51.0); HEMOGLOBIN 11.3 g/dL (13.6-17.8); IMMATURE GRANULOCYTES 0.1 %; IMMATURE GRANULOCYTES ABSOLUTE 0.01 10/3/uL (0.0-0.11); LYMPHOCYTES 17.2 %; LYMPHOCYTES ABSOLUTE 1.55 10/3/uL (0.67-4.30); MEAN CORPUS HGB CONC 32.7 g/dL (32.0-36.0); MEAN CORPUSCULAR HEMOGLOB 27.6 pg (26.0-34.0); MEAN PLATELET VOLUME 10.7 fL (9.2-13.0); MONOCYTES 9.6 %; MONOCYTES ABSOLUTE 0.86 10/3/uL (0.21-1.20); NEUTROPHILS 70.3 %; NEUTROPHILS ABSOLUTE 6.32 10/3/uL (2.02-8.40); PLATELET COUNT 221 10/3/uL (150-400); RBC DISTRIBUTION WIDTH 18.9 % (12.0-16.0); RED CELL COUNT 4.09 10/6/uL (4.7-6.1)
[2016-11-27 08:26] LABS: MANUAL DIFF NO %; MEAN CORPUSCULAR VOLUME 84.6 fL (80-100)
[2016-11-27 08:47] LABS: ALBUMIN 2.8 G/DL (3.5-5.0); CALCIUM, SERUM 9.5 MG/DL (8.5-10.4); CHLORIDE, SERUM 101 MMOL/L (96-112); CO2 (CARBON DIOXIDE) 23 MMOL/L (24-34); GFR AFRICAN AMERICAN 8 ML/MIN (>=60); GFR NON AFRICAN AMERICAN 7 ML/MIN (>=60); GLUCOSE, SERUM 241 MG/DL (60-99); PHOSPHORUS, SERUM 1.5 MG/DL (2.5-4.5); POTASSIUM, SERUM 5.8 MMOL/L (3.5-5.3); SODIUM, SERUM 133 MMOL/L (135-148)
[2016-11-27 08:54] LABS: BUN (BLOOD UREA NITROGEN) 75 MG/DL (6-23); CREATININE 7.19 MG/DL (0.70-1.30)
[2016-11-27] MEDS ORDERED: MIRALAX POWDER1 PKT PO (14:47)
[2016-12-07] MEDS ORDERED: NOVOLOG SC (14:41)
[2016-12-07] MEDS ORDERED: ASABAYER PO (14:41)
[2016-12-07] MEDS ORDERED: NEPHRO-VITE PO (14:42)
[2016-12-07] MEDS ORDERED: LIPITOR40 PO (14:42)
[2016-12-07] MEDS ORDERED: REST15 PO (14:42)
[2016-12-07] MEDS ORDERED: LIOR10 PO (14:42)
[2016-12-07] MEDS ORDERED: PROAMAT5 PO (14:43)
[2016-12-07] MEDS ORDERED: LANTUS SC (14:43)
[2016-12-07] MEDS ORDERED: COREG3 PO (14:43)
[2016-12-07] MEDS ORDERED: PLAVIX PO (14:43)
[2016-12-07] MEDS ORDERED: PR25 PO (14:45)
== END 2016-11-27 16:17 | disposition home health service (06) | DRG 551 ==
LOC: ER 21:31 → 2SO 23:59 → 6NO 11-11 01:58
PROVIDERS: Emergency Medicine; Internal Medicine Nephrology; Nurse Practitioner; Registered Nurse
PROC: 5A1D60Z (ICD-10-PCS; principal; 2016-11-13)
PROC: 4B02XSZ Measurement of Cardiac Pacemaker, External Approach (ICD-10-PCS; 2016-11-21)
PROC: B01B1ZZ Fluoroscopy of Spinal Cord using Low Osmolar Contrast (ICD-10-PCS; 2016-11-22)
DX: M47.12 Other spondylosis with myelopathy, cervical region (principal); N18.6 End stage renal disease; G92 Toxic encephalopathy; J90 Pleural effusion, not elsewhere classified; I12.0 Hypertensive chronic kidney disease with stage 5 chronic kidney disease or end stage renal disease; M62.838 Other muscle spasm; E11.22 Type 2 diabetes mellitus with diabetic chronic kidney disease; D41.02 Neoplasm of uncertain behavior of left kidney; I25.2 Old myocardial infarction; I73.9 Peripheral vascular disease, unspecified; T42.8X5A Adverse effect of antiparkinsonism drugs and other central muscle-tone depressants, initial encounter; K59.00 Constipation, unspecified; M62.830 Muscle spasm of back; N28.1 Cyst of kidney, acquired; Z99.2 Dependence on renal dialysis; Z79.4 Long term (current) use of insulin; Z95.1 Presence of aortocoronary bypass graft; Z89.512 Acquired absence of left leg below knee; Z89.511 Acquired absence of right leg below knee; Z88.8 Allergy status to other drugs, medicaments and biological substances; Z79.82 Long term (current) use of aspirin; Z79.02 Long term (current) use of antithrombotics/antiplatelets
CPT/HCPCS: 62284; 70450; 70460; 70491; 71010; 71250; 71260; 72125; 72126; 76775; 80048; 80069; 82533; 82550; 82553; 82947; 82962; 83735; 84145; 84484; 85025; 85610; 85652; 85730; 86140; 87040; 93005; 96374; 96375; 97110-GO; 97110-GP; 97162-GP; 97167-GO; 97530-GO; 97530-GP; 97535-GO; 99285; A9270-GY; G0257; J2150; J2405; J2800; J2930; P9047; Q9966; Q9967

== ENCOUNTER 2016-12-07 17:36 | Inpatient (IN) | payer BC ==
--- NOTE | ~2016-12-07 | HP ---
History And Physical [facility] [address] [place]. [address] NAME: APOLLO THAO : [birth year] STATUS : ADM IN [facility]#: [id number] AGE: 66 ADM/REG DATE : 12/07/16 MR#: [id number] REPORT SERV DATE: 12/07/16 DICTATED BY: DELONTE HUSSEIN DATE: 12/07/16 REPORT STATUS : Draft TRANSCRIBED BY: MODCece DATE: 12/07/16 DATE OF ADMISSION: 12/07/2016 INDICATION FOR HOSPITALIZATION: Altered mentation. HISTORY OF PRESENT ILLNESS: Mr. Thao is a 66-year-old male, who dialyzes Sunday, Sunday, Sunday at [facility] by AV fistula. He was at home and apparently took his insulin and took Phenergan for nausea and became unresponsive. He was found to have a blood sugar of 14 by EMS and required D50 and D10 drip at the [facility] emergency room. He was transferred to [facility] on D10 drip. His mentation is still sluggish. He did have a procalcitonin of 4.7 with a WBC of 8.0. His arterial blood gas demonstrated pCO2 of 49, pO2 of 53, with a serum pH of 7.38. His potassium was 3.5. The patient has had similar episodes of altered mentation following hypoglycemia that were slow to clear. PAST MEDICAL HISTORY: 1. End-stage renal disease, dialyzing Sunday, Sunday, Sunday at [facility] by AV fistula. 2. Recurrent right pleural effusion, status post VATS procedure with pleurodesis. 3. Type 2 diabetes mellitus. 4. Peripheral vascular disease with bilateral below-knee amputation. 5. Chronic hypotension. 6. Insulin-dependent diabetes mellitus. 7. Coronary artery disease, status post remote CABG. 8. Remote myocardial infarction. 9. Atrial fibrillation. 10.Pacemaker/AICD. 11.History of anemia. SOCIAL HISTORY: The patient lives with , who is very supportive. Has two sons that live locally. 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 Quit smoking in 2003. No use of alcohol or illicit substances. FAMILY HISTORY: Father lived to age 78, of complications of cardiovascular disease. Mother lived to age 62 with complications of diabetes and cirrhosis. No history of end- stage renal disease. ALLERGIES: SEROQUEL. HOME MEDICATIONS: Vitamin C, Lipitor, Dulcolax, Coreg, Sensipar, Plavix, NovoLog insulin, Lantus insulin, vitamin B complex, ProAmatine, ProAir inhaler, PhosLo, probiotic, aspirin, Restoril, Tums, nitroglycerin. REVIEW OF SYSTEMS: Unable to obtain as the patient is still lethargic, confused. PHYSICAL EXAMINATION: History And Physical [address] [place]. [address] NAME: APOLLO THAO : [birth year] STATUS : ADM IN [facility]#: [id number] AGE: 66 ADM/REG DATE : 12/07/16 MR#: [id number] REPORT SERV DATE: 12/07/16 DICTATED BY: DELONTE HUSSEIN DATE: 12/07/16 REPORT STATUS : Draft TRANSCRIBED BY: AIDE DATE: 12/07/16 GENERAL: Chronically-ill male, lethargic. VITAL SIGNS: Blood pressure 104/55, temperature 93.4, pulse 74, respiratory rate 16. HEENT: Eyes, no scleral icterus. Pupils equal, reactive to light. Extraocular movement intact. Nares patent. No discharge. Throat, no injection. Mucous membranes moist. NECK: No thyromegaly, masses, or bruits. CHEST/LUNGS: Late crackles posteriorly. No wheezes. No dullness. CARDIAC: Regular rate and rhythm. 1/6 systolic ejection murmur. No gallop. No rub. ABDOMEN: Supple. Normoactive bowel sounds. Nontender. No hepatosplenomegaly. /RECTAL: Not performed. EXTREMITIES: Bilateral BKA. No edema. NEUROLOGIC: Unable to evaluate due to lack of participation in exam. MUSCULOSKELETAL: Bilateral BKA. No joint effusions. IMPRESSION: 1. Altered mentation likely secondary to hypoglycemia, would be concerned about possibility of infection due to procalcitonin elevation and hypothermia. 2. Hypoglycemia following insulin therapy. 3. Type 2 diabetes mellitus. 4. End-stage renal disease, dialyzing Sunday, Sunday, Sunday at [facility] by AV fistula. 5. Peripheral vascular disease status post bilateral below-knee amputation. 6. Chronic hypotension. 7. Coronary artery disease, status post coronary artery bypass graft. 8. Remote myocardial infarction. 9. Recurrent right pleural effusion, status post pleurodesis. 10.Atrial fibrillation. 11.Pacemaker/AICD. 12.Hyperdense renal cyst. PLAN: 1. Continue D10. 2. Hemodialysis, 12/08/2016. 3. Cultures, monitor for infection. 4. Recheck ABG once blood sugar is stable. CG/MODL Delonte Hussein M.D. / [id number] CC: Frederick Penny M.D.
--- NOTE | ~2016-12-07 | DS ---
Discharge Summary [facility] [address] [place]. [address] NAME: APOLLO ELIZABETH : 48 STATUS : DIS IN PAT#: [id number] AGE: 66 ADM/REG DATE : 12/07/16 MR#: [id number] REPORT SERV DATE: 12/26/16 DICTATED BY: ALIVIA PENNY DATE: 12/25/16 REPORT STATUS : Draft TRANSCRIBED BY: MODCece DATE: 12/25/16 Data Collection from hospitalization DISCHARGE DIAGNOSIS(ES): 1. Metabolic encephalopathy. 2. Hyperlipidemia. 3. Type 2 diabetes mellitus. 4. End-stage renal disease. 5. Peripheral vascular disease. 6. Chronic hypotension. 7. Atrial fibrillation. 8. Coronary artery disease. 9. History of remote myocardial infarction. 10.History of anemia. 11.Former smoker. CONSULTATIONS: None. PROCEDURES PERFORMED: None. MEDICATIONS: Shannan aspirin 325 mg daily, Lipitor 40 mg at bedtime, Nephro-Shaneka 1 tablet daily, Lioresal 10 mg twice a day as needed, Coreg 3.125 mg twice a day, Plavix 75 mg daily, NovoLog injection insulin before meals and at bedtime, Lantus 7 units subcutaneously at bedtime, ProAmatine 5 mg on Mondays, Wednesdays, and Fridays, Zofran 4 mg three times a day as needed, and Restoril 15 mg at bedtime. CONDITION AT DISCHARGE: Stable. DISPOSITION: The patient was discharged home on a renal-diabetic diet with activities as instructed. He would follow up for hemodialysis 12/13/2016. HOSPITAL COURSE: This is a 66-year-old man who dialyzes on Mondays, Wednesdays, and Fridays via an AV fistula. He was at home and apparently took his insulin and his Phenergan for nausea and then became unresponsive. He was found to have a blood sugar of 14 by EMS and had required D50 and D10 drip at [facility]. He was transferred to [facility] on a D10 drip. His mentation was still sluggish. He did have a procalcitonin of 4.7 and white count of 8.0. His arterial blood gas demonstrated pCO2 of 49 and pO2 of 53 with serum pH of 7.38. His potassium was 3.5. The patient had had similar episodes of altered mentation following hypoglycemia that was slow to clear. He was admitted to the hospital at this time for further evaluation and treatment. Upon admission, it was felt that his altered mentation was likely secondary to hypoglycemia. There was concern about the possibility of infection due to procalcitonin elevation and hypothermia. His temperature was 93.4. D10 was continued. He would undergo hemodialysis the following day. Cultures were going to be obtained. We will recheck his ABG once his blood sugar was stable. The following day, hemodialysis therapy was performed. On 12/09/2016, he was alert and cooperative. He had no focal deficits. Creatinine level was 5.55. He was afebrile. On 12/10/2016, he had no nausea, vomiting, or abdominal pain. Discharge Summary [address] [address] NAME: APOLLO ELIZABETH : 48 STATUS : DIS IN PAT#: [id number] AGE: 66 ADM/REG DATE : 12/07/16 MR#: [id number] REPORT SERV DATE: 12/26/16 DICTATED BY: ALIVIA PENNY DATE: 12/25/16 REPORT STATUS : Draft TRANSCRIBED BY: MODL DATE: 12/25/16 Creatinine was 5.84. His white count was 10.1. His altered mental status had resolved. Over the next couple of days, discharge planning was performed. He continued to progress. He felt fairly well. Hemodialysis therapy continued. On 12/12/2016, he felt well and wanted to go home. Discharge instructions were given. Due to his improved and stable condition, he was discharged home to be followed by home health care with the above-stated instructions. Information collected by: Yolande Jordan I submit the above information as my discharge summary. TG/MODL Alivia Penny M.D. / [id number] CC: Keisha Ward M.D.
[~2016-12-07 17:36] MED LIST changes: +ASABAYER PO; +LIOR10 PO; +PR25 PO; +PROAMAT5 PO; +REST15 PO; +ZANTAC300 MG PO
[2016-12-07 20:28] LABS: BE (BASE EXCESS) 3.5 MEQ/L (0 +/- 2.5); CARBOXYHEMOGLOBIN 0.4 % (0-3); HCO3 (ACTUAL BICARBONATE) 27.1 MEQ/L (23-27); INSTRUMENT SERIAL # 8083; METHEMOGLOBIN 0.3 % (0-3); O2 CONTENT 16.8 VOL% (18-24); PCO2 (CO2 TENSION) 38 MMHG (35-45); PO2 (O2 TENSION) 67 MMHG (79-93); SAMPLE Arterial; pH 7.48 (7.37-7.43)
[2016-12-07 20:29] LABS: ALLENS TEST Pos; OPERATOR ID 33214
[2016-12-08 05:20] LABS: BASOPHILS 0.1 %; BASOPHILS ABSOLUTE 0.01 10/3/uL (0.0-0.16); EOSINOPHILS 0.2 %; EOSINOPHILS ABSOLUTE 0.02 10/3/uL (0.0-0.53); HEMATOCRIT 37.2 % (40.0-51.0); HEMOGLOBIN 12.1 g/dL (13.6-17.8); IMMATURE GRANULOCYTES 0.2 %; IMMATURE GRANULOCYTES ABSOLUTE 0.02 10/3/uL (0.0-0.11); LYMPHOCYTES 12.4 %; LYMPHOCYTES ABSOLUTE 1.55 10/3/uL (0.67-4.30); MEAN CORPUS HGB CONC 32.5 g/dL (32.0-36.0); MEAN CORPUSCULAR HEMOGLOB 28.5 pg (26.0-34.0); MEAN CORPUSCULAR VOLUME 87.5 fL (80-100); MEAN PLATELET VOLUME 10.9 fL (9.2-13.0); MONOCYTES 12.8 %; NEUTROPHILS 74.3 %; PLATELET COUNT 206 10/3/uL (150-400); RBC DISTRIBUTION WIDTH 19.8 % (12.0-16.0); RED CELL COUNT 4.25 10/6/uL (4.7-6.1)
[2016-12-08 05:27] LABS: MANUAL DIFF NO %; WHITE BLOOD CELLS 12.5 10/3/uL (4.5-10.5)
[2016-12-08 05:28] LABS: ALBUMIN 3.3 G/DL (3.5-5.0); CALCIUM, SERUM 10.1 MG/DL (8.5-10.4); CHLORIDE, SERUM 98 MMOL/L (96-112); CO2 (CARBON DIOXIDE) 27 MMOL/L (24-34); SODIUM, SERUM 137 MMOL/L (135-148)
[2016-12-08 05:31] LABS: BUN (BLOOD UREA NITROGEN) 68 MG/DL (6-23); CREATININE 5.55 MG/DL (0.70-1.30); GFR AFRICAN AMERICAN 11 ML/MIN (>=60); GFR NON AFRICAN AMERICAN 10 ML/MIN (>=60); GLUCOSE, SERUM 144 MG/DL (60-99); PHOSPHORUS, SERUM 2.4 MG/DL (2.5-4.5); POTASSIUM, SERUM 4.4 MMOL/L (3.5-5.3)
[2016-12-08 06:17] LABS: PROCALCITONIN 8.73 ng/mL (<0.5)
[2016-12-09 07:13] LABS: BASOPHILS 0.6 %; BASOPHILS ABSOLUTE 0.05 10/3/uL (0.0-0.16); EOSINOPHILS 3.5 %; HEMATOCRIT 34.6 % (40.0-51.0); IMMATURE GRANULOCYTES 0.1 %; IMMATURE GRANULOCYTES ABSOLUTE 0.01 10/3/uL (0.0-0.11); LYMPHOCYTES 19.6 %; MEAN CORPUS HGB CONC 31.8 g/dL (32.0-36.0); MEAN CORPUSCULAR HEMOGLOB 28.1 pg (26.0-34.0); MEAN CORPUSCULAR VOLUME 88.5 fL (80-100); MONOCYTES 9.5 %; MONOCYTES ABSOLUTE 0.82 10/3/uL (0.21-1.20); NEUTROPHILS 66.7 %; NEUTROPHILS ABSOLUTE 5.78 10/3/uL (2.02-8.40); PLATELET COUNT 193 10/3/uL (150-400); RBC DISTRIBUTION WIDTH 20.1 % (12.0-16.0); RED CELL COUNT 3.91 10/6/uL (4.7-6.1); WHITE BLOOD CELLS 8.7 10/3/uL (4.5-10.5)
[2016-12-09 07:18] LABS: MANUAL DIFF NO %
[2016-12-09 07:27] LABS: ALBUMIN 3.1 G/DL (3.5-5.0); BUN (BLOOD UREA NITROGEN) 45 MG/DL (6-23); CALCIUM, SERUM 9.8 MG/DL (8.5-10.4); CHLORIDE, SERUM 102 MMOL/L (96-112); CO2 (CARBON DIOXIDE) 29 MMOL/L (24-34); CREATININE 4.55 MG/DL (0.70-1.30); GFR AFRICAN AMERICAN 14 ML/MIN (>=60); GFR NON AFRICAN AMERICAN 12 ML/MIN (>=60); GLUCOSE, SERUM 202 MG/DL (60-99); PHOSPHORUS, SERUM 2.4 MG/DL (2.5-4.5); POTASSIUM, SERUM 4.6 MMOL/L (3.5-5.3); SODIUM, SERUM 139 MMOL/L (135-148)
[2016-12-09 09:09] LABS: PROCALCITONIN 11.59 ng/mL (<0.5)
[2016-12-10 05:49] LABS: BASOPHILS 0.5 %; BASOPHILS ABSOLUTE 0.05 10/3/uL (0.0-0.16); EOSINOPHILS 4.3 %; EOSINOPHILS ABSOLUTE 0.43 10/3/uL (0.0-0.53); HEMATOCRIT 33.9 % (40.0-51.0); HEMOGLOBIN 10.8 g/dL (13.6-17.8); IMMATURE GRANULOCYTES 0.1 %; IMMATURE GRANULOCYTES ABSOLUTE 0.01 10/3/uL (0.0-0.11); LYMPHOCYTES 26.4 %; LYMPHOCYTES ABSOLUTE 2.66 10/3/uL (0.67-4.30); MANUAL DIFF NO %; MEAN CORPUS HGB CONC 31.9 g/dL (32.0-36.0); MEAN CORPUSCULAR HEMOGLOB 28.1 pg (26.0-34.0); MEAN CORPUSCULAR VOLUME 88.1 fL (80-100); MEAN PLATELET VOLUME 10.8 fL (9.2-13.0); MONOCYTES 19.6 %; MONOCYTES ABSOLUTE 1.97 10/3/uL (0.21-1.20); NEUTROPHILS 49.1 %; NEUTROPHILS ABSOLUTE 4.95 10/3/uL (2.02-8.40); NUCLEATED RED BLOOD CELLS 0.2 /100WBC (0-0); PLATELET COUNT 172 10/3/uL (150-400); RBC DISTRIBUTION WIDTH 19.8 % (12.0-16.0); RED CELL COUNT 3.85 10/6/uL (4.7-6.1); WHITE BLOOD CELLS 10.1 10/3/uL (4.5-10.5)
[2016-12-10 05:59] LABS: CALCIUM, SERUM 9.9 MG/DL (8.5-10.4); CHLORIDE, SERUM 99 MMOL/L (96-112); CO2 (CARBON DIOXIDE) 25 MMOL/L (24-34); GFR AFRICAN AMERICAN 11 ML/MIN (>=60); GFR NON AFRICAN AMERICAN 9 ML/MIN (>=60); GLUCOSE, SERUM 193 MG/DL (60-99); PHOSPHORUS, SERUM 2.9 MG/DL (2.5-4.5); SODIUM, SERUM 133 MMOL/L (135-148)
[2016-12-10 06:00] LABS: BUN (BLOOD UREA NITROGEN) 67 MG/DL (6-23); CREATININE 5.84 MG/DL (0.70-1.30); POTASSIUM, SERUM 5.7 MMOL/L (3.5-5.3)
[2016-12-10 06:59] LABS: PROCALCITONIN 8.53 ng/mL (<0.5)
[2016-12-11 10:05] LABS: BASOPHILS 0.3 %; BASOPHILS ABSOLUTE 0.02 10/3/uL (0.0-0.16); EOSINOPHILS 5.4 %; EOSINOPHILS ABSOLUTE 0.38 10/3/uL (0.0-0.53); HEMATOCRIT 30.7 % (40.0-51.0); HEMOGLOBIN 9.8 g/dL (13.6-17.8); IMMATURE GRANULOCYTES 0.1 %; IMMATURE GRANULOCYTES ABSOLUTE 0.01 10/3/uL (0.0-0.11); LYMPHOCYTES 20.5 %; LYMPHOCYTES ABSOLUTE 1.45 10/3/uL (0.67-4.30); MEAN CORPUS HGB CONC 31.9 g/dL (32.0-36.0); MEAN CORPUSCULAR HEMOGLOB 27.8 pg (26.0-34.0); MEAN PLATELET VOLUME 10.7 fL (9.2-13.0); MONOCYTES 15.3 %; MONOCYTES ABSOLUTE 1.08 10/3/uL (0.21-1.20); NEUTROPHILS 58.4 %; NEUTROPHILS ABSOLUTE 4.12 10/3/uL (2.02-8.40); PLATELET COUNT 170 10/3/uL (150-400); RBC DISTRIBUTION WIDTH 19.5 % (12.0-16.0); RED CELL COUNT 3.53 10/6/uL (4.7-6.1); WHITE BLOOD CELLS 7.1 10/3/uL (4.5-10.5)
[2016-12-11 10:09] LABS: MANUAL DIFF NO %
[2016-12-11 10:18] LABS: ALBUMIN 2.6 G/DL (3.5-5.0); CALCIUM, SERUM 9.5 MG/DL (8.5-10.4); CHLORIDE, SERUM 99 MMOL/L (96-112); PHOSPHORUS, SERUM 3.4 MG/DL (2.5-4.5); POTASSIUM, SERUM 5.7 MMOL/L (3.5-5.3); SODIUM, SERUM 132 MMOL/L (135-148)
[2016-12-11 10:19] LABS: BUN (BLOOD UREA NITROGEN) 88 MG/DL (6-23); CO2 (CARBON DIOXIDE) 20 MMOL/L (24-34); CREATININE 7.39 MG/DL (0.70-1.30); GFR AFRICAN AMERICAN 8 ML/MIN (>=60); GFR NON AFRICAN AMERICAN 7 ML/MIN (>=60); GLUCOSE, SERUM 253 MG/DL (60-99)
[2016-12-12 04:18] LABS: BUN (BLOOD UREA NITROGEN) 60 MG/DL (6-23); CALCIUM, SERUM 8.9 MG/DL (8.5-10.4); CHLORIDE, SERUM 101 MMOL/L (96-112); CO2 (CARBON DIOXIDE) 21 MMOL/L (24-34); CREATININE 5.47 MG/DL (0.70-1.30); GFR AFRICAN AMERICAN 12 ML/MIN (>=60); GFR NON AFRICAN AMERICAN 10 ML/MIN (>=60); GLUCOSE, SERUM 264 MG/DL (60-99); POTASSIUM, SERUM 5.1 MMOL/L (3.5-5.3); SODIUM, SERUM 137 MMOL/L (135-148)
[2016-12-12] MEDS ORDERED: ZOFRAN4 PO (17:16)
== END 2016-12-12 19:20 | disposition home health service (06) | DRG 637 ==
LOC: 2SO 17:36 → 6NO 12-08 08:35
PROVIDERS: Internal Medicine Nephrology; Registered Nurse
PROC: 5A1D60Z (ICD-10-PCS; principal; 2016-12-08)
DX: E11.649 Type 2 diabetes mellitus with hypoglycemia without coma (principal); G93.41 Metabolic encephalopathy; I95.89 Other hypotension; I12.0 Hypertensive chronic kidney disease with stage 5 chronic kidney disease or end stage renal disease; N18.6 End stage renal disease; I48.91 Unspecified atrial fibrillation; I73.9 Peripheral vascular disease, unspecified; E11.22 Type 2 diabetes mellitus with diabetic chronic kidney disease; N28.1 Cyst of kidney, acquired; T38.3X5A Adverse effect of insulin and oral hypoglycemic [antidiabetic] drugs, initial encounter; E11.65 Type 2 diabetes mellitus with hyperglycemia; I25.10 Atherosclerotic heart disease of native coronary artery without angina pectoris; I25.2 Old myocardial infarction; Y92.009 Unspecified place in unspecified non-institutional (private) residence as the place of occurrence of the external cause; Z79.4 Long term (current) use of insulin; Z99.2 Dependence on renal dialysis; Z95.1 Presence of aortocoronary bypass graft; Z95.810 Presence of automatic (implantable) cardiac defibrillator; Z89.512 Acquired absence of left leg below knee; Z89.511 Acquired absence of right leg below knee; Z87.891 Personal history of nicotine dependence; T68.XXXA Hypothermia, initial encounter; R09.02 Hypoxemia; D64.9 Anemia, unspecified; Z87.01 Personal history of pneumonia (recurrent); Z88.1 Allergy status to other antibiotic agents; Z91.09 Other allergy status, other than to drugs and biological substances; Z79.82 Long term (current) use of aspirin; Z79.899 Other long term (current) drug therapy
CPT/HCPCS: 36600; 71010; 80048; 80053; 80069; 80202; 82805; 82962; 83605; 83735; 84132; 84145; 85025; 85610; 85730; 87040; 93005; 99291; A9270-GY; G0257; J2405; J2543; J2550; J3370